=== PATIENT | female | born 1985 | race Caucasian/White ===

== ENCOUNTER 2016-06-20 18:56 | Outpatient (CLI) | payer OTHER, MEDICAID ==
[2016-06-20 19:50] LABS: APPEARANCE,URINE CLOUDY; BILIRUBIN,URINE NEGATIVE (NEGATIVE); GLUCOSE, URINE NEGATIVE (NEGATIVE); KETONES,URINE TRACE mg/dL (NEGATIVE); LEUKOCYTE ESTERASE,URINE TRACE (NEGATIVE); NITRITE,URINE NEGATIVE (NEGATIVE); PROTEIN,URINE 30 mg/dL (NEGATIVE); URINE SPECIFIC GRAVITY 1.026; UROBILINOGEN,URINE NEGATIVE mg/dL (<2.0)
--- NOTE | 2016-06-20 20:00 | L&D Flow Sheet ---
LD Flowsheet Datetime Report Generated by CPN: 06/20/2016 20:00 Datetime: 06/20/2016 19:57 Vital Signs NBP Sys/Carissa/Mean (mmHg): 113 (QS system process) : 74 (QS system process) : 90 (QS system process) Pulse: 96 (QS system process) Datetime: 06/20/2016 19:37 Uterine Activity Frequency (min): q2-3 minutes ([facility]) Pain Pain Scale: 3 (Katie Field ) Pain Presence: Intermittent (Katie Field ) Pain Type: Cramping; Contraction (Katie Mai RN) Pain Location: Abdomen (Katie NISHA Mai) Pain Goal: 0 (Katie Field ) Pain Relief Measures: Comfort Measures (Katie Field ) Pain Coping: Talking Through Contractions; Breathing Through Contractions ([facility], ) Vaginal Exam Vaginal Bleeding: Normal Show (Katie Field, RN) Maternal Assessment Level of Consciousness: Fully Conscious (Katie Field, RN) DTR's/Clonus: DTRs 2+; No Clonus (Katie [facility], RN) Headache: Denies (Katie [facility], RN) Breath Sounds, Left: Clear and Equal ([facility], RN) Breath Sounds, Right: Clear and Equal (Katie Field, RN) Nausea/Vomiting: Denies ([facility], RN) RUQ Epigastric Pain: Denies (Katie [facility], RN) Teaching Instructional Method: Verbal; Patient Instructed; Family/Support Person Instructed; Verbalized Understanding (Katie Mai RN) Plan of Care: Plan of Care Discussed (Katie Mai RN) Unit Routine: [place] to Room; Call Yan; Bed; Visiting Policy; Waiting Areas; Infant Security; Phone/Cell Phone Use; Unit Personnel; Handwashing; Flu/Illness Precautions; Monitoring; Safety/Fall Risk Prevention; Bathroom Privileges (Katie Mai RN) Datetime: 06/20/2016 19:26 Vital Signs NBP Sys/Carissa/Mean (mmHg): 124 (QS system process) : 91 (QS system process) : 103 (QS system process) Pulse: 108 (QS system process)
--- NOTE | 2016-06-20 20:00 | L&D Flow Sheet ---
LD Flowsheet Datetime Report Generated by CPN: 06/20/2016 20:00 Datetime: 06/20/2016 19:57 Vital Signs NBP Sys/Carissa/Mean (mmHg): 113 (QS system process) : 74 (QS system process) : 90 (QS system process) Pulse: 96 (QS system process) Datetime: 06/20/2016 19:37 Uterine Activity Frequency (min): q2-3 minutes ([facility]) Pain Pain Scale: 3 (Katie Field ) Pain Presence: Intermittent (Katie Field ) Pain Type: Cramping; Contraction (Katie Mai RN) Pain Location: Abdomen (Katie NISHA Mai) Pain Goal: 0 (Katie Field ) Pain Relief Measures: Comfort Measures (Katie Field ) Pain Coping: Talking Through Contractions; Breathing Through Contractions ([facility], ) Vaginal Exam Vaginal Bleeding: Normal Show (Katie Field, RN) Maternal Assessment Level of Consciousness: Fully Conscious (Katie Field, RN) DTR's/Clonus: DTRs 2+; No Clonus (Katie [facility], RN) Headache: Denies (Katie [facility], RN) Breath Sounds, Left: Clear and Equal ([facility], RN) Breath Sounds, Right: Clear and Equal (Katie Field, RN) Nausea/Vomiting: Denies ([facility], RN) RUQ Epigastric Pain: Denies (Katie [facility], RN) Teaching Instructional Method: Verbal; Patient Instructed; Family/Support Person Instructed; Verbalized Understanding (Katie Mai RN) Plan of Care: Plan of Care Discussed (Katie Mai RN) Unit Routine: [place] to Room; Call Yan; Bed; Visiting Policy; Waiting Areas; Infant Security; Phone/Cell Phone Use; Unit Personnel; Handwashing; Flu/Illness Precautions; Monitoring; Safety/Fall Risk Prevention; Bathroom Privileges (Katie Mai RN) Datetime: 06/20/2016 19:26 Vital Signs NBP Sys/Carissa/Mean (mmHg): 124 (QS system process) : 91 (QS system process) : 103 (QS system process) Pulse: 108 (QS system process)
[2016-06-20 20:08] LABS: URINE BARBITURATES SCREEN NEGATIVE; URINE METHADONE SCREEN NEGATIVE; URINE OPIATES LOW NEGATIVE; URINE PHENCYCLIDINE SCREEN NEGATIVE
--- NOTE | 2016-06-25 11:39 | Non Stress Test Report ---
Non Stress Test Datetime Report Generated by CPN: 06/25/2016 11:39 DEMOGRAPHIC EGA NST: 38.5 INDICATION Indication for Study: Ordered by Provider Indication for Study (NST) Other: LC MONITORING Monitor Explained: Monitor Explained; Test Explained; Patient Verbalized Understanding Time on Monitor: 06/20/2016 19:23 Time off Monitor: 06/20/2016 20:43 NST Duration: 80 NST INTERVENTIONS NST Interventions: PO Hydration; Reposition Patient Physician Notified NST: Dr. Mendez BABY A: [id number] BABY A Movement : Present Contraction Frequency : 5-9.5 FHR Baseline : 145 Accelerations : 15X15 Decelerations : None Variability : Moderate 6-25bpm NST Review: Meets Criteria for Reactive NST NST Review and Verified By : Marques Gonzalez RN NST Results: Reactive NST REPORT Report Trigger: Send Report
== END 2016-06-20 20:49 | disposition home or self-care (01) ==
LOC: LC 18:56
PROVIDERS: ATTEND Obstetrics & Gynecology
PROC: 4A1HXCZ Monitoring of Products of Conception, Cardiac Rate, External Approach (ICD-10-PCS; principal; 2016-06-20)
DX: O47.1 False labor at or after 37 completed weeks of gestation (principal); Z3A.38 38 weeks gestation of pregnancy
CPT/HCPCS: 59025; 80307; 81005

== ENCOUNTER 2016-06-25 11:42 | Inpatient (IN) | payer OTHER, MEDICAID ==
[2016-06-25 12:29] LABS: APPEARANCE,URINE TURBID; BILIRUBIN,URINE NEGATIVE (NEGATIVE); GLUCOSE, URINE NEGATIVE (NEGATIVE); KETONES,URINE TRACE mg/dL (NEGATIVE); LEUKOCYTE ESTERASE,URINE MODERATE (NEGATIVE); NITRITE,URINE NEGATIVE (NEGATIVE); PROTEIN,URINE 30 mg/dL (NEGATIVE); URINE SPECIFIC GRAVITY 1.013; UROBILINOGEN,URINE NEGATIVE mg/dL (<2.0)
[2016-06-25 13:10] LABS: URINE BARBITURATES SCREEN NEGATIVE; URINE METHADONE SCREEN NEGATIVE; URINE OPIATES LOW NEGATIVE; URINE PHENCYCLIDINE SCREEN NEGATIVE
[2016-06-25] MEDS ORDERED: RINGERS SOLUTION,LACTATED 1,000 ML IV ONE (13:42)
[2016-06-25] MEDS ORDERED: FENTANYL/BUPIVACAINE/NS/PF 200 MCG/100 ML RTUINJ EPI ONE (13:54)
[2016-06-25] MEDS ORDERED: EPHEDRINE SULFATE INJ 50 MG/1 ML AMPULE ONE (13:54)
[2016-06-25] MEDS ORDERED: BUPIVACAINE HCL 0.25 % INJ/PF (2.5 MG/1 ML) 30 ML VIAL ONE (13:55)
--- NOTE | 2016-06-25 14:42 | L&D Progress Notes ---
PROGRESS NOTES Datetime Report Generated by CPN: 06/25/2016 14:41 PROGRESS NOTE Impression: Normal Progression of Labor; Reassuring Heart Rate Procedures: Artificial ROM; Sterile Vag Exam Plan: Continue Present Management Vital Signs : Reviewed; Within Normal Limits Comment: Epidural in place. SVE with AROM-clear. SVE as above. VAGINAL EXAM Dilatation: 7 Dilatation: 4 Effacement: 90 Effacement: 80 Station: -1 Station: -1 MEMBRANES Membranes: Ruptured Membranes: Intact Amniotic Fluid Color: Clear FETUS A FHR - Baseline: 140 Monitoring: External US Decelerations: None : 39.3 Presentation: Vertex SIGNATURE SIGNATURE: [id number] SIGNATURE: [id number] Assignment: Carolyn Trejo MD Signature: with User ID: [email or web address] : with User ID: Michelle : I personally evaluated and examined the patient in conjunction with the MLP and agree with the assessment, treatment plan and disposition. : I personally evaluated and examined the patient in conjunction with the MLP and agree with the assessment, treatment plan and disposition.
[2016-06-25 14:45] LABS: ABSOLUTE EOSINOPHILS # (AUTO) 0.1 10^3/uL (0.0-0.6); ABSOLUTE MONOCYTES (AUTO) 0.5 10^3/uL (0.1-1.4); ABSOLUTE NEUT (AUTO) 5.6 10^3/uL (1.7-8.2); BASOPHILS % (AUTO) 0.2 % (0-2); EOSINOPHILS % (AUTO) 1.4 % (0-6); HEMATOCRIT 38.2 % (36.0-47.0); HEMOGLOBIN 12.9 g/dL (12.0-15.5); HGB HCT DIFFERENCE 0.5; LYMPHOCYTES % (AUTO) 24.6 % (13-45); MEAN CORPUSCULAR HEMOGLOBIN 30.1 pg (27.0-33.4); MEAN CORPUSCULAR HGB CONC 33.8 g/dL (32.0-36.0); MEAN CORPUSCULAR VOLUME 89 fl (80-97); MONOCYTES % (AUTO) 5.8 % (3-13); RED BLOOD COUNT 4.29 10^6/uL (3.72-5.28); RED CELL DISTRIBUTION WIDTH 13.7 % (11.5-14.0); WHITE BLOOD COUNT 8.2 10^3/uL (4.0-10.5)
[2016-06-25] MEDS ORDERED: CITRIC ACID/SODIUM CITRATE ORAL SOLN 15 ML UDCUP ONE (14:55)
[2016-06-25] MEDS ORDERED: OXYTOCIN/NORMAL SALINE 20 UNIT/1,000 ML RTUINJ ONE (15:27)
[2016-06-25] MEDS ORDERED: DIPHENHYDRAMINE HCL 25 MG CAPSULE PO PRN (16:11)
[2016-06-25] MEDS ORDERED: PROMETHAZINE HCL 25 MG TABLET PO PRN (16:11)
[2016-06-25] MEDS ORDERED: DIBUCAINE 1% OINTMENT 28 GM TP PRN (16:11)
[2016-06-25] MEDS ORDERED: MEASLES,MUMPS&RUBELLA VACC/PF 0.5 ML VIAL SUBCUT PRN (16:11)
[2016-06-25] MEDS ORDERED: ACETAMINOPHEN WITH CODEINE #3 TABLET PO PRN (16:11)
[2016-06-25] MEDS ORDERED: MAGNESIUM HYDROXIDE SUSP 30 ML UDCUP PO PRN (16:11)
[2016-06-25] MEDS ORDERED: ACETAMINOPHEN 650 MG SUPP.RECT PR PRN (16:11)
[2016-06-25] MEDS ORDERED: GLYCERIN/WITCH HAZEL LEAF 1 EACH MED..PAD TP PRN (16:11)
[2016-06-25] MEDS ORDERED: ZOLPIDEM TARTRATE 5 MG TABLET PO PRN (16:11)
[2016-06-25] MEDS ORDERED: DIPH/PERTUSS(ACELL)/TETANUS VAC/PF 0.5 ML SYR (>=10YO) IM PRN (16:11)
[2016-06-25] MEDS ORDERED: OXYTOCIN/NORMAL SALINE 1,000 ML IV PRN (16:11)
[2016-06-25] MEDS ORDERED: PROMETHAZINE HCL INJ 25 MG/1 ML VIAL IV PRN (16:11)
[2016-06-25] MEDS ORDERED: NA PHOS,M-B/NA PHOS,DI-BA (ADULT) 133 ML ENEMA PR PRN (16:11)
[2016-06-25] MEDS ORDERED: PSEUDOEPHEDRINE HCL 30 MG TABLET PO PRN (16:11)
[2016-06-25] MEDS ORDERED: PROMETHAZINE HCL 25 MG SUPP.RECT PR PRN (16:11)
[2016-06-25] MEDS ORDERED: BENZOCAINE/MENTHOL AEROSOL SPRAY 56 ML TOP PRN (16:11)
--- NOTE | 2016-06-25 17:37 | Admission Physical ---
Datetime Report Generated by CPN: 06/25/2016 17:37 CURRENT ADMISSION Chief Complaint: Uterine Contractions Indication for Induction: Not Applicable Admit Impression- Other: Cervical change after ambulation Admit Plan: Admit to Unit; Initiate Labor Protocol ALLERGIES Medication Allergies: No Medication Allergies: No Known Allergies (04/07/2015) Latex: No Latex Allergies Food Allergies: N/A Environmental Allergies: N/A OBSTETRICAL HISTORY EDC: 06/29/2016 00:00 : 7 Para: 1 Term: 1 : 0 SAB: 5 IAB: 0 Ectopic: 2 Livin Cesareans: 0 VBACs: 0 Multiple Births: 0 Gestational Diabetes: No Rh Sensitization: No Incompetent Cervix: No ANNELISE: No Infertility: No ART Treatment: No Uterine Anomaly: No IUGR: No Hx Previous C/S: No Macrosomia: No Hx Loss/Stillborn: No PIH: No Hx : No Placenta Previa/Abruption: No Depression/PP Depression: Yes PTL/PROM: No Post Hemorrhage: No Current Procedures: Ultrasound Obstetrical History Comments: G1 - 2005 - ectopic G2 2007 - G3 - 2007 - ectopic G4 2007 - 2011 - , Boy 2015 G7 - Current SEE RECORDS Alcohol: No Marijuana : No Cocaine: No Other Illicit Drugs: No Cigarettes: Former Smoker. 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 Surgery: No Heart Disease: No Hosp/Surgery: Yes Autoimmune Disorder: No Anesthetic Complications: No Kidney Disease: No Abnormal Pap Smear: Yes Neuro/Epilepsy: No Psychiatric Disorders: Yes Other Medical Diseases: No Hepatitis/Liver Disease: No Significant Family History: No Varicosities/Phlebitis: No Trauma/Violence : No Thyroid Dysfunction: No Medical History Comments: DEPRESSION _ ANXIETY Asthma, CHILDBIRTH abnormal pap at 15 INFECTIOUS HISTORY Gonorrhea: No Genital Herpes: No Chlamydia: No Tuberculosis: No Syphilis: No Hepatitis: No HIV/AIDS Exposure: No Rash or Viral Illness: No HPV: No PHYSICAL EXAM General: Normal HEENT: Normal Neurologic: Normal Thyroid: Deferred Heart: Normal Lungs: Normal Breast: Deferred Back: Normal Abdomen: Normal Genitourinary Exam: Normal Extremities: Normal Physical Exam Comments: Gravid Vital Signs: Reviewed; Within Normal Limits VAGINAL EXAM Dilatation: 7 Dilatation: 4 Effacement: 90 Effacement: 80 Station: -1 Station: -1 MEMBRANES Membranes: Ruptured Membranes: Intact Amniotic Fluid Color: Clear FETUS A EGA: 39.3 Monitoring: External US FHR- Baseline: 140 Accelerations: 15X15 Decelerations: None Presentation: Vertex Admit Comment: 2 ectopics-right ovary removed History of asthma History depression and anxiety Sent from office-tracing reactive, ambulated with cervical change noted when rechecked Admit rrecords available PLANS FOR LABOR AND DELIVERY Labor and Delivery: None Feeding Preference: Breast Benefit of Breast Feed Discussed: Yes Circumcision: Yes INFORMED CONSENT Assignment: Carolyn Trejo MD Signature: with User ID: Michelle : with User ID: Michelle : I personally evaluated and examined the patient in conjunction with the MLP and agree with the assessment, treatment plan and disposition. : I personally evaluated and examined the patient in conjunction with the MLP and agree with the assessment, treatment plan and disposition. : I personally evaluated and examined the patient in conjunction with the MLP and agree with the assessment, treatment plan and disposition.
--- NOTE | 2016-06-25 19:00 | L&D Flow Sheet ---
LD Flowsheet Datetime Report Generated by CPN: 06/25/2016 19:00 Datetime: 06/25/2016 15:27 Stage 2 Comments: delivery of placenta Pitocin hung at bolus (Makeda Bellavance, RNC) Datetime: 06/25/2016 15:09 NBP Sys/Carissa/Mean (mmHg): 175 (QS system process) : 88 (QS system process) : 115 (QS system process) Pulse: 110 (QS system process) Datetime: 06/25/2016 14:54 Monitor Mode: External (Makeda Bellavance, RNC) Frequency (min): 2-5 (Makeda Bellavance, RNC) Quality: Moderate (Makeda Bellavance, RNC) Duration (sec): 60-90 (Makeda Bellavance, RNC) Duration Criteria: Less than Two 120 Second Contractions (Makeda Bellavance, RNC) Pattern: Normal: <= 5 Contractions in 10 Minutes (Makeda Bellavance, RNC) Resting Tone (Palpate): Relaxed (Makeda Bellavance, RNC) Monitor Mode: External US (Makeda Bellavance, RNC) Monitor Interventions for FHR: Ultrasound Adjusted (Makeda Bellavance, RNC) FHR Baseline Rate : 145 (Makeda Bellavance, RNC) Variability: Moderate 6-25 bpm (Makeda Bellavance, RNC) Accelerations: None (Makeda Bellavance, RNC) Membranes Rupture Method: Artificial (Makeda Bellavance, RNC) Amniotic Fluid Color: Clear (Makeda Bellavance, RNC) Amniotic Fluid Amount: Moderate (Makeda Bellavance, RNC) Amniotic Fluid Odor: Normal (Makeda Bellavance, RNC) Antiemetics/Antacids: Bicitra 15 ml PO (Makeda Bellavance, RNC) IV/Blood Work: IV Infusing per Order (Makeda Bellavance, RNC) Datetime: 06/25/2016 14:37 Monitor Mode: External (Makeda Bellavance, RNC) Frequency (min): 2-5 (Makeda Bellavance, RNC) Quality: Moderate (Makeda Bellavance, RNC) Duration (sec): 60-90 (Makeda Bellavance, RNC) Duration Criteria: Less than Two 120 Second Contractions (Makeda Bellavance, RNC) Pattern: Normal: <= 5 Contractions in 10 Minutes (Makeda Bellavance, RNC) Resting Tone (Palpate): Relaxed (Makeda Bellavance, RNC) Monitor Mode: External US (Makeda Bellavance, RNC) Monitor Interventions for FHR: Ultrasound Adjusted (Makeda Bellavance, RNC) FHR Baseline Rate : 145 (Makeda Bellavance, RNC) Variability: Moderate 6-25 bpm (Makeda Bellavance, RNC) Accelerations: None (Makeda Bellavance, RNC) Dilatation (cm): 7.0 (Makeda Bellavance, RNC) Effacement (%): 90 (Makeda Bellavance, RNC) Station: -1 (Makeda Bellavance, RNC) Exam by: Josh Mane CNM (Makeda Bellavance, RNC) Membrane Status: Ruptured (Makeda Bellavance, RNC) Membranes Rupture Method: Artificial (Makeda Bellavance, RNC) Amniotic Fluid Color: Clear (Makeda Bellavance, RNC) Amniotic Fluid Amount: Moderate (Makeda Bellavance, RNC) Amniotic Fluid Odor: Normal (Makeda Bellavance, RNC) IV/Blood Work: IV Infusing per Order (Makeda Bellavance, RNC) Datetime: 06/25/2016 14:26 NBP Sys/Carissa/Mean (mmHg): 118 (QS system process) : 65 (QS system process) : 85 (QS system process) Pulse: 77 (QS system process) Datetime: 06/25/2016 14:25 NBP Sys/Carissa/Mean (mmHg): 124 (QS system process) : 64 (QS system process) : 87 (QS system process) Pulse: 100 (QS system process) Datetime: 06/25/2016 14:20 Respirations: 18 (Makeda Bellavance, RNC) Monitor Mode: External (Makeda Bellavance, RNC) Frequency (min): 2-8 (Makeda Bellavance, RNC) Quality: Moderate (Makeda Bellavance, RNC) Duration (sec): 60-90 (Makeda Bellavance, RNC) Duration Criteria: Less than Two 120 Second Contractions (Makeda Bellavance, RNC) Pattern: Normal: <= 5 Contractions in 10 Minutes (Makeda Bellavance, RNC) Resting Tone (Palpate): Relaxed (Makeda Bellavance, RNC) Monitor Mode: External US (Makeda Bellavance, RNC) Monitor Interventions for FHR: Ultrasound Adjusted (Makeda Bellavance, RNC) FHR Baseline Rate : 150 (Makeda Bellavance, RNC) Variability: Moderate 6-25 bpm (Makeda Bellavance, RNC) Accelerations: None (Makeda Bellavance, RNC) Decelerations: Early (Makeda Bellavance, RNC) Pain Assessment Comments: epidural finished and patient lying (Makeda Bellavance, RNC) IV/Blood Work: IV Infusing per Order (Makeda Bellavance, RNC) Datetime: 06/25/2016 14:19 NBP Sys/Carissa/Mean (mmHg): 134 (QS system process) : 78 (QS system process) : 99 (QS system process) Pulse: 82 (QS system process) Datetime: 06/25/2016 14:15 NBP Sys/Carissa/Mean (mmHg): 146 (QS system process) : 86 (QS system process) : 100 (QS system process) Pulse: 100 (QS system process) Datetime: 06/25/2016 14:14 NBP Sys/Carissa/Mean (mmHg): 133 (QS system process) : 62 (QS system process) : 89 (QS system process) Pulse: 100 (QS system process) Datetime: 06/25/2016 14:12 NBP Sys/Carissa/Mean (mmHg): 149 (QS system process) : 68 (QS system process) : 98 (QS system process) Pulse: 91 (QS system process) Epidural Procedure: Cath Placed (Makeda Bellavance, RNC) Epidural Procedure: Test Dose (Makeda Bellavance, RNC) Datetime: 06/25/2016 14:11 NBP Sys/Carissa/Mean (mmHg): 153 (QS system process) : 69 (QS system process) : 99 (QS system process) Pulse: 98 (QS system process) Anesthesia Comments: 2nd kit (Makeda Farrahavance, RNC) Datetime: 06/25/2016 14:10 NBP Sys/Carissa/Mean (mmHg): 129 (QS system process) : 79 (QS system process) : 97 (QS system process) Pulse: 90 (QS system process) Datetime: 06/25/2016 14:09 NBP Sys/Carissa/Mean (mmHg): 149 (QS system process) : 74 (QS system process) : 104 (QS system process) Pulse: 93 (QS system process) Epidural Procedure: Cath Placed; Test Dose (Makeda Bellavance, RNC) Datetime: 06/25/2016 14:08 NBP Sys/Carissa/Mean (mmHg): 137 (QS system process) : 65 (QS system process) : 91 (QS system process) Pulse: 102 (QS system process) Datetime: 06/25/2016 14:07 NBP Sys/Carissa/Mean (mmHg): 144 (QS system process) : 65 (QS system process) : 93 (QS system process) Pulse: 93 (QS system process) Datetime: 06/25/2016 14:06 NBP Sys/Carissa/Mean (mmHg): 138 (QS system process) : 86 (QS system process) : 105 (QS system process) Pulse: 106 (QS system process) IV/Blood Work: IV Started (Makeda Bellavance, RNC) Datetime: 06/25/2016 14:05 NBP Sys/Carissa/Mean (mmHg): 131 (QS system process) : 80 (QS system process) : 99 (QS system process) Pulse: 92 (QS system process) Procedure Verify: Correct Patient Identity; Correct Side and Site are Marked; Accurate Procedure Consent Form; Agreement on Procedure to be Done; Correct Patient Position (Makeda Bellavance, RNC) Anesthesia Plans: Epidural (Makeda Bellavance, RNC) Epidural Positioning: Sitting (Makeda Bellavance, RNC) Datetime: 06/25/2016 14:04 NBP Sys/Carissa/Mean (mmHg): 138 (QS system process) : 98 (QS system process) : 115 (QS system process) Pulse: 96 (QS system process) Datetime: 06/25/2016 13:58 Monitor Mode: External; Palpation (Makeda Bellavance, RNC) Frequency (min): 4-6 (Makeda Bellavance, RNC) Quality: Moderate to Strong (Makeda Bellavance, RNC) Duration (sec): 50-80 (Makeda Bellavance, RNC) Pattern: Normal: <= 5 Contractions in 10 Minutes (Makeda Bellavance, RNC) Resting Tone (Palpate): Relaxed (Makeda Bellavance, RNC) Monitor Mode: External US; Auscultation (Makeda Bellavance, RNC) FHR Baseline Rate : 140 (Makeda Bellavance, RNC) FHR Baseline Changes: No Baseline Change (Makeda Bellavance, RNC) Variability: Moderate 6-25 bpm (Makeda Bellavance, RNC) Accelerations: 15X15 (Makeda Bellavance, RNC) Decelerations: None (Makeda Bellavance, RNC) Pain Scale: 5 (ANNE-MARIE Soria) Pain Assessment Comments: pt loudly moaning and crying unable to maintain control. RN and family remain at bedside attempting to comfort and assist (ANNE-MARIE Soria) Comfort Measures: Family Support (Makeda Bellavance, RNC) Consults: Anesthesia (Ena Gongora, RNC) Patient Care Comments: Call placed to Dr Ramirez notified of pt inability to maintain control secondary to 5 out of 5 pain level, epidural requested (Ena Rolan, RNC) Datetime: 06/25/2016 13:30 Monitor Mode: External; Palpation (Makeda Bellavance, RNC) Frequency (min): 2-4 (Makeda Bellavance, RNC) Quality: Moderate to Strong (Makeda Bellavance, RNC) Duration (sec): 50-80 (Makeda Bellavance, RNC) Pattern: Normal: <= 5 Contractions in 10 Minutes (Makeda Bellavance, RNC) Resting Tone (Palpate): Relaxed (Makeda Bellavance, RNC) Monitor Mode: External US; Auscultation (Makeda Bellavance, RNC) FHR Baseline Rate : 140 (Makeda Bellavance, RNC) FHR Baseline Changes: No Baseline Change (Makeda Bellavance, RNC) Variability: Moderate 6-25 bpm (Makeda Bellavance, RNC) Accelerations: 15X15 (Makeda Bellavance, RNC) Decelerations: None (Makeda Bellavance, RNC) Comfort Measures: Family Support (Makeda Bellavance, RNC) Datetime: 06/25/2016 13:00 Monitor Mode: External; Palpation (Ena Camp, RNC) Frequency (min): 2-4 (Ena Camp, RNC) Quality: Moderate to Strong (Ena Camp, RNC) Duration (sec): 50-80 (Ena Camp, RNC) Pattern: Normal: <= 5 Contractions in 10 Minutes (Ena Camp, RNC) Resting Tone (Palpate): Relaxed (Ena Camp, RNC) Monitor Mode: External US; Auscultation (Ena Camp, RNC) FHR Baseline Rate : 140 (Ena Camp, RNC) FHR Baseline Changes: No Baseline Change (Ena Camp, RNC) Variability: Moderate 6-25 bpm (Ena Camp, RNC) Accelerations: 15X15 (Ena Camp, RNC) Decelerations: None (Ena Camp, RNC) Patient Position/Activity: Walking (Makeda Bellavance, RNC) Comfort Measures: Family Support (Ena Camp, RNC) Datetime: 06/25/2016 12:59 Monitor Mode: External (Makeda Bellavance, RNC) Frequency (min): 6-12 (Makeda Bellavance, RNC) Quality: Mild/Moderate (Makeda Bellavance, RNC) Duration (sec): 90-150 (Makeda Bellavance, RNC) Resting Tone (Palpate): Relaxed (Makeda Bellavance, RNC) Monitor Mode: External US (Makeda Bellavance, RNC) FHR Baseline Rate : 140 (Makeda Bellavance, RNC) Variability: Moderate 6-25 bpm (Makeda Bellavance, RNC) Accelerations: 15X15 (Makeda Bellavance, RNC) Decelerations: None (Makeda Bellavance, RNC) Pain Presence: Intermittent (Makeda Bellavance, RNC) Pain Type: Cramping (Makeda Bellavance, RNC) Patient Position/Activity: Left Tilt; Semi-Fowlers (Makeda Bellavance, RNC) Datetime: 06/25/2016 12:50 IV/Blood Work: IV Started; IV Bolus Started; IV Infusing per Order (Ena Camp, RNC) Patient Care Comments: 18g jelco placed on first attempt in right wrist. LR 1000 ml bolusing via gravity (Ena Camp, RNC) Datetime: 06/25/2016 12:04 Monitor Mode: External (Jemima Roberts RN) Monitor Interventions for UA: [place] Adjusted (Jemima Roberts RN) Frequency (min): occassional (Jemima Roberts, NISHA) Quality: Mild/Moderate (Jemima Roberts, NISHA) Duration (sec): 50-90 (Jemima Roberts, NISHA) Resting Tone (Palpate): Relaxed (Jemima Roberts RN) Pain Scale: 3 (Jemima Roberts RN) Pain Presence: Intermittent (Jemima Roberts, NISHA) Pain Type: Cramping (Jemima Roberts, NISHA) Pain Location: Abdomen (Jemima Roberts, NISHA) Pain Goal: 2 (Jemima Roberts RN) Pain Relief Measures: Comfort Measures (Jemima Roberts, NISHA) Pain Coping: Breathing Through Contractions (Jemima Roberts RN) Dilatation (cm): 4.0 (Jemima Roberts RN) Effacement (%): 50 (Jemima Roberts, NISHA) Station: -3 (Jemima Roberts, NISHA) Exam by: Karl Sal RNC (Jemima Roberts, RN) Vaginal Bleeding: None (Jemima Roberts, NISHA) Cervix, Consistency: Moderate (Jemima Roberts, NISHA) Cervix, Position: Posterior (Jemima Roberts, NISHA) Patient Position/Activity: Semi-Fowlers (Jemima Roberts, NISHA) Comfort Measures: Breathing/Relaxation (Jemima Roberts, NISHA) Datetime: 06/25/2016 11:59 Level of Consciousness: Fully Conscious (Makeda Bellavance, RNC) DTR's/Clonus: DTRs 2+; No Clonus (Makeda Bellavance, RNC) Headache: Denies (Makeda Bellavance, RNC) Breath Sounds, Left: Clear and Equal (Makeda Bellavance, RNC) Breath Sounds, Right: Clear and Equal (Makeda Bellavance, RNC) Nausea/Vomiting: Denies (Makeda Bellavance, RNC) RUQ Epigastric Pain: Denies (Makeda Bellavance, RNC) Datetime: 06/25/2016 11:57 NBP Sys/Carissa/Mean (mmHg): 133 (QS system process) : 85 (QS system process) : 103 (QS system process) Pulse: 97 (QS system process) Datetime: 06/25/2016 11:56 Monitor Mode: External (Makeda Bellavance, RNC) Frequency (min): 3-5 (Makeda Shantince, RNC) Quality: Mild (Makeda Shantince, RNC) Duration (sec): 40-50 (Makeda Shantince, RNC) Resting Tone (Palpate): Relaxed (Makeda Shantince, RNC) Monitor Mode: External US (Makeda Daviese, RNC) FHR Baseline Rate : 145 (Makeda Shantince, RNC) Variability: Moderate 6-25 bpm (Makeda Shantince, RNC) Accelerations: 15X15 (Makeda Shantince, RNC) Decelerations: None (Makeda Shantince, RNC) Pain Scale: 3 (Makedamanuel Daviese, RNC) Pain Presence: Intermittent (Makeda Daviese, RNC) Pain Type: Cramping (Makeda Daviese, RNC) Pain Location: Abdomen (Makeda Daviese, RNC) Pain Goal: 2 (Makeda Shantince, RNC) Pain Relief Measures: Comfort Measures (Makeda Daviese, RNC) Patient Position/Activity: Semi-Fowlers (Makeda Daviese, RNC) Comfort Measures: Breathing/Relaxation (Makeda Daviese, RNC)
[2016-06-25] MEDS: ACETAMINOPHEN WITH CODEINE #3 TABLET PO PRN (19:45)
[2016-06-25] MEDS: FAMOTIDINE 20 MG TABLET PO SCH (21:29)
[2016-06-25] MEDS: IBUPROFEN 800 MG TABLET PO SCH (21:30)
[2016-06-26] MEDS: ACETAMINOPHEN WITH CODEINE #3 TABLET PO PRN ×3 (02:36→14:47)
[2016-06-26] MEDS: IBUPROFEN 800 MG TABLET PO SCH ×3 (05:19→21:06)
--- NOTE | 2016-06-26 06:00 | L&D General Admission ---
General Admit Datetime Report Generated by CPN: 06/26/2016 06:00 INFORMATION Patient Age: 29 (10/31/2015 13:25:QS system process) EDC: 06/29/2016 00:00 (06/20/2016 18:55:Inge Trejo RN) : 7 (06/20/2016 18:55:Katie Mai RN) Para: 1 (06/20/2016 18:55:Katie Mai RN) Term: 1 (06/20/2016 18:55:Jemima Roberts RN) : 0 (06/20/2016 18:55:Jemima Roberts RN) Spontaneous Abortions: 5 (06/20/2016 18:55:Jemima Roberts RN) Induced Abortions: 0 (06/20/2016 18:55:Jemima Roberts RN) Livin (06/20/2016 18:55:Jemima Roberts RN) Cesareans: 0 (06/20/2016 18:55:Jemima Roberts RN) VBACs: 0 (06/20/2016 18:55:Jemima Roberts RN) Ectopic: 2 (06/20/2016 18:55:Jemima Roberts RN) Multiple Births: 0 (06/20/2016 18:55:Jemima Roberts RN) Baby, Number in Womb: 1 (06/20/2016 18:55:Katie Mai RN) CARE Primary Operating Room Surgical Technician: [facility] (06/20/2016 18:55:Katie Mai RN) Month of 1st Visit: sept (06/20/2016 18:55:ANNE-MARIE Aguero) Adequate Care: Yes (06/20/2016 18:55:Katie Mai RN) Prepregnancy Weight (lb): 130 (06/20/2016 18:55:ANNE-MARIE Aguero) Prepregnancy Weight (kg): 59.1 (06/20/2016 18:55:QS system process) Height (in): 62 (06/25/2016 17:36:QS system process) ALLERGIES Medication Allergy: No (06/20/2016 18:55:Katie Mai RN) Medication Allergies: No Known Allergies (04/07/2015) (10/31/2015 13:25:QS system process) Latex Allergy: No Latex Allergies (06/20/2016 18:55:Katie Mai RN) Food Allergies: N/A (06/20/2016 18:55:Katie Mai RN) Environmental Allergies: N/A (06/20/2016 18:55:Katie Mai RN) COMMUNICATION Primary Language: Albanian (06/20/2016 18:55:Katie Mai RN) Medical Tx Preferred Language: Albanian (06/20/2016 18:55:Katie Mai RN) Communication Barrier(s): None (06/20/2016 18:55:Katie Mai RN) DEMOGRAPHICS Address: [address] [place] [id number] (06/20/2016 18:57:QS system process) Zipcode: [address] (06/20/2016 18:57:QS system process) Home (06/20/2016 18:57:QS system process) SSN: [id number] (10/31/2015 13:25:QS system process) Next of Kin Name: LESTER LONDON (06/20/2016 18:57:QS system process) Next of Kin (06/20/2016 18:57:QS system process) Next of Kin Relationship: OR (06/20/2016 18:57:QS system process) Date of : 1985 (10/31/2015 13:25:QS system process) Marital Status: (10/31/2015 13:25:QS system process) Sex: Female (10/31/2015 13:25:QS system process) Race: (10/31/2015 13:25:QS system process) Ethnicity: Non- or (10/31/2015 13:25:QS system process) Spiritism: Congregation (10/31/2015 13:25:QS system process) FOB Involved: Yes (06/20/2016 18:55:Katie Mai RN) Father of Baby Name: Lester London (06/20/2016 18:55:Katie Mai RN) DRUG AND ALCOHOL USE Alcohol: No (06/20/2016 18:55:Katie Mai RN) Cigarettes: Former Smoker. [id number] (06/20/2016 18:55:Katie Mai RN) Marijuana: No (06/20/2016 18:55:Katie Mai RN) Cocaine: No (06/20/2016 18:55:Katie Mai RN) Other Illicit Drugs: No (06/20/2016 18:55:Katie Mai RN) VACCINE HISTORY Influenza Vaccine: Yes (06/20/2016 18:55:Katie Mai RN) Pneumococcal Vaccine: No (06/20/2016 18:55:Katie Mai RN) Tetanus Vaccine: No (06/20/2016 18:55:Katie Mai RN) Tdap Vaccine: No (06/20/2016 18:55:Katie Mai RN) Hepatitis B Vaccine: No (06/20/2016 18:55:Katie Mai RN) Coal Dumping Equipment Operator: [facility] (06/20/2016 18:55:Katie Mai RN) Feeding Preference: Breast (06/20/2016 18:55:Katie Mai RN) Benefit of Breast Feed Discussed: Yes (06/20/2016 18:55:Katie Mai RN) Circumcision: Yes (06/20/2016 18:55:Katie Mai RN) Classes Attended: No (06/20/2016 18:55:Katie Mai RN) Tubal Ligation: No (06/20/2016 18:55:Katie Mai RN) Tubal Authorization Signed: N/A (06/20/2016 18:55:Katie Mai RN) Consent: N/A (06/20/2016 18:55:Katie Mai RN) Consent Signed: N/A (06/20/2016 18:55:Katie Mai RN) Plans for Labor and Delivery: None (06/20/2016 18:55:Katie Mai RN) Support Person: Lester London (06/20/2016 18:55:Katie Mai RN) Support Person Relationship: Significant Other (06/20/2016 18:55:Katie Mai RN) Cultural/Spritual Practice: No (06/20/2016 18:55:Katie Mai RN) Spir/Cult Dietary Needs: No (06/20/2016 18:55:Katie Mai RN) LIVING SITUATION/DISCHARGE PLAN Living Arrangements: House (06/20/2016 18:55:Katie Mai RN) Adequate Access to:: Electric; Heat; Refrigeration; Plumbing/Running water; Phone; Transportation (06/20/2016 18:55:Katie Mai RN) WIC Program: Yes (06/20/2016 18:55:Katie Mai RN) Discharge Underbaster Person: Lester London (06/20/2016 18:55:Katie Mai RN) Person to Help after Discharge: Lester London (06/20/2016 18:55:Katie Mai RN) Currently Using Commun Resources: No (06/20/2016 18:55:Katie Mai RN) Outside Agency/Regional Account Executive: No (06/20/2016 18:55:Katie Mai RN) Car Seat for Discharge: Yes (06/20/2016 18:55:Katie Mai RN) Adoption Requested: No (06/20/2016 18:55:Katie Mai RN) Pt Contact w/ Post : N/A (06/20/2016 18:55:Katie Mai RN) LABS Blood Type: O Positive (06/20/2016 18:55:Jemima Roberts RN) Antibody Screen: NEGATIVE (06/20/2016 18:55:Jemima Roberts RN) Hemoglobin: 12.9 (06/25/2016 14:30:QS system process) Hematocrit: 38.2 (06/25/2016 14:30:QS system process) MCV: 89 (06/25/2016 14:30:QS system process) Group Beta Strep: NEGATIVE (06/20/2016 18:55:Jemima Roberts RN) Gonorrhea: Negative (06/20/2016 18:55:Jemima Roberts RN) Chlamydia: Negative (06/20/2016 18:55:Jemima Roberts RN) RPR/VDRL: Nonreactive (06/20/2016 18:55:Jemima Roberts RN) Hepatitis B: Negative (06/20/2016 18:55:Jemima Roberts RN) Rubella: Immune (06/20/2016 18:55:Jemima Roberts RN) OB/PREVIOUS HISTORY Previous Procedures: Ultrasound (06/20/2016 18:55:Katie Mai RN) Current Procedures: Ultrasound (06/20/2016 18:55:Katie Mai RN) History of Previous : No (06/20/2016 18:55:Katie Mai RN) History of Gestational Diabetes: No (06/20/2016 18:55:Katie Mai RN) History of PIH: No (06/20/2016 18:55:Katie Mai RN) History of Incompetent Cervix: No (06/20/2016 18:55:Katie Mai RN) History of Placenta Previa/Abrup: No (06/20/2016 18:55:Katie Mai RN) History of Macrosomia: No (06/20/2016 18:55:Katie Mai RN) History of IUGR: No (06/20/2016 18:55:Katie Mai RN) History of Hemorrhage: No (06/20/2016 18:55:Katie Mai RN) History of Loss/Stillborn: No (06/20/2016 18:55:Katie Mai RN) History of : No (06/20/2016 18:55:Katie Mai RN) History of D (Rh) Sensitization: No (06/20/2016 18:55:Katie Mai RN) History Recurrent Loss/Stillborn: No (06/20/2016 18:55:Katie Mai RN) History Depression/PP Depression: Yes (06/20/2016 18:55:Jemima Roberts RN) History of Uterine Anomaly/ANNELISE: No (06/20/2016 18:55:Katie Mai RN) History of Infertility: No (06/20/2016 18:55:Katie Mai RN) History of ART Treatment: No (06/20/2016 18:55:Katie Mai RN) History of ANNELISE: No (06/20/2016 18:55:Katie Mai RN) Comments Obstetrical History: G1 - 2006 - ectopic G2 - 2007 - SAB G3 - 2008 - ectopic G4 - 2007 - SAB G5 - 2011 - , Boy G6 - 2015 - SAB G7 - Current (06/20/2016 18:55:Katie Mai RN) MEDICAL HISTORY Med Hx Diabetes: No (06/20/2016 18:55:Katie Mai RN) Med Hx Hypertension: No (06/20/2016 18:55:Katie Mai RN) Med Hx Heart Disease: No (06/20/2016 18:55:Katie Mai RN) Med Hx Autoimmune Disorder: No (06/20/2016 18:55:Katie Mai RN) Med Hx Kidney Disease/UTI: No (06/20/2016 18:55:Katie Mai RN) Med Hx Neurologic/Epilepsy: No (06/20/2016 18:55:Katie Mai RN) Med Hx Psychiatric Disorders: Yes (06/20/2016 18:55:Jemima Roberts RN) Med Hx Hepatitis/Liver Disease: No (06/20/2016 18:55:Katie Mai RN) Med Hx Varicosities/Phlebitis: No (06/20/2016 18:55:Katie Mai RN) Med Hx Thyroid Dysfunction: No (06/20/2016 18:55:Katie Mai RN) Med Hx Trauma/Violence: No (06/20/2016 18:55:Katie Mai RN) Med Hx Blood Transfusion: No (06/20/2016 18:55:Katie Mai RN) Med Hx Pulmonary (Asthma,TB): Yes (06/20/2016 18:55:Katie Mai RN) Med Hx Breast: No (06/20/2016 18:55:Katie Mai RN) Med Hx BLUEPRINT BLOCKER Surgery: No (06/20/2016 18:55:Katie Mai RN) Med Hx Hospitalization/Surgery: Yes (06/20/2016 18:55:Jemima Roberts RN) Med Hx Anesthetic Complications: No (06/20/2016 18:55:Katie Mai RN) Med Hx Abnormal Pap Smear: Yes (06/20/2016 18:55:Katie Mai RN) Other Medical Diseases: No (06/20/2016 18:55:Katie Mai RN) Med Hx Significant Family Hx: No (06/20/2016 18:55:Katie Mai RN) Details of Med/Surg Hx: DEPRESSION _ ANXIETY Asthma, CHILDBIRTH abnormal pap at 15 (06/20/2016 18:55:Jemima Roberts RN) INFECTIOUS HISTORY Inf Hx Gonorrhea: No (06/20/2016 18:55:Katie Mai RN) Inf Hx Chlamydia: No (06/20/2016 18:55:Katie Mai RN) Inf Hx Syphilis: No (06/20/2016 18:55:Katie Mai RN) Inf Hx HIV/AIDS: No (06/20/2016 18:55:Katie Mai RN) Inf Hx Human Papilloma Virus: No (06/20/2016 18:55:Katie Mai RN) Inf Hx Pt/Partner Genital Herpes: No (06/20/2016 18:55:Katie Mai RN) Inf Hx Tuberculosis/Exposure: No (06/20/2016 18:55:Katie Mai RN) Inf Hx Hepatitis B,C: No (06/20/2016 18:55:Katie Mai RN) Inf Hx Rash or Viral Illness: No (06/20/2016 18:55:Katie Mai RN) GENETIC HISTORY Gen Hx Age >=35 at YOH[place]: No (06/20/2016 18:55:Katie Mai RN) Gen Hx Thalassemia: No (06/20/2016 18:55:Katie Mai RN) Gen Hx Congenital Heart Defect: No (06/20/2016 18:55:Katie Mai RN) Gen Hx Neural Tube Defect: No (06/20/2016 18:55:Katie Mai RN) Gen Hx Down's Syndrome: No (06/20/2016 18:55:Katie Mai RN) Gen Hx Tim-Sachs: No (06/20/2016 18:55:Katie Mai RN) Gen Hx Jase: No (06/20/2016 18:55:Katie Mai RN) Gen Hx Familial Dysautonomia: No (06/20/2016 18:55:Katie Mai RN) Gen Hx Sickle Cell Disease/Trait: No (06/20/2016 18:55:Katie Mai RN) Gen Hx Hemophilia/Blood Disorder: No (06/20/2016 18:55:Katie Mai RN) Gen Hx Muscular Dystrophy: No (06/20/2016 18:55:Katie Mai RN) Gen Hx Cystic Fibrosis: No (06/20/2016 18:55:Katie Mai RN) Gen Hx Huntingtons Chorea: No (06/20/2016 18:55:Katie Mai RN) Gen Hx Mental Retardation/Autism: No (06/20/2016 18:55:Katie Mai RN) Gen Hx Tested for Fragile X: No (06/20/2016 18:55:Katie Mai RN) Gen Hx Other Inher/Chromosomal: No (06/20/2016 18:55:Katie Mai RN) Gen Hx Maternal Metabolic DO: No (06/20/2016 18:55:Katie Mai RN) Gen Hx Pt Father or FOB Defect: No (06/20/2016 18:55:Katie Mai RN) Gen Hx Other Genetic History: No (06/20/2016 18:55:Katie Mai RN) Gen Hx Drugs/Meds since LMP: Yes (06/20/2016 18:55:Katie Mai RN) Gen Hx Medications: PNV, Folic Acid, Zyrtec and Tums (06/20/2016 18:55:Katie Mai RN)
--- NOTE | 2016-06-26 06:15 | L&D Care Plan ---
LD CARE PLANS Datetime Report Generated by CPPasha: 06/26/2016 06:15 Datetime: 06/25/2016 13:45 State: Actual (ANNE-MARIE Soria) Related To: Labor and Delivery Process; Treatment and Procedures; Post (ANNE-MARIE Soria) Goal(s): Patients Pain will be Assessed and Managed; Patient will Verbalize Adequate Relief of Pain or the Ability to [place] with Current Pain (ANNE-MARIE Soria) Interventions: Assess Pain Severity on Scale of 0 (None) to 5 (Severe); Assess Type, Location and Intensity of Pain Each Time Client Reports Discomfort and Notify Provider if Unusal Pain Develops; Encourage Proper Breathing and Relaxation Techniques; Offer Alternatives Such as Repositioning, Calm Environment, Massages, Diversional Activities, Ice Pack, Splinting, and Ambulation; Administer Analgesics as Ordered; Assist with Epidural Placement as Appropriate; Evaluate Therapeutic Effectiveness of Medication and Treatments (ANNE-MARIE Soria) Outcome: Patient will Report Absence or Relief of Pain Consistent with Established Pain Goal (ANNE-MARIE Soria) Status: Ongoing (ANNE-MARIE Soria) Outcome: Patient will have a Decrease in Signs and Symptoms of Discomfort (Ena Gongora, RN) Status: Ongoing (Ena Gongora, RNC) Outcome: Pain will be Controlled During Procedures (Ena Gongora, RN) Status: Ongoing (Ena Gongora, RN) State: Actual (Ena Gongora, RN) Related To: Labor and Delivery Process; Fear of Unknown; Situational Crisis; Medical Interventions; Significant Life Event (Ena Gongora, RN) Goal(s): Patient will have Decreased Anxiety and be able to Function at Acceptable Levels (Ena Gongora, RN) Interventions: Assess Verbal and Nonverbal Behavioral Indicators of Anxiety; Assist Patient to Identify and Verbalize Symptoms of Anxiety; Identify and Demonstrate Techniques to Control Anxiety; Assist Patient with Coping Mechanisms to Manage Anxiety; Provide Theraputic Touch for the Patient; Explain to Patient, Using a Calm Reassuring Approach and Nonmedical Terms, All Activities, Procedures, and Concerns; Instruct Patient and Family about Post Discharge Care, Limitations, Symptoms to Report and Resources Available (Ena Gongora, RN) Outcome: Patient will Identify, Verbalize and Demonstrate Techniques to Control Anxiety (Ena Gongora, RN) Status: Ongoing (Ena Gongora, RN) Outcome: Patient's Posture, Facial Expressions, Gestures and Activity Level will Reflect Decreased Anxiety (Ena Gongora, RN) Status: Ongoing (Ena Gongora, RN) Outcome: Patient will Verbalize a Sense of Control and/or Acceptance of the Situation (Ena Gongora, RN) Status: Ongoing (Ena Gongora, RN) Outcome: Patient will Identify and Utilize Support Person (Ena Gongora, RN) Status: Ongoing (Ena Gongora, RN) State: Actual (Ena Gongora, RN) Related To: Labor and Delivery Process; Treatment and Procedures; Feeding and Infant Care; Community Resources and Available Support Mechanisms (Ena Gongora, RN) Goal(s): Patient will Accurately Verbalize Understanding of Plan of Care and Treatment; Patient and Family will Accurately Verbalize Understanding of the Disease Process (Ena Gongora, RNC) Interventions: Assess Motivation and Willingness of Patient/Family to Learn; Assess Preferred Learning Mode: One to One Instruction, Reading, Videos, Group Discussion or Demonstration; Assess Barriers to Learning: Pain, Emotional State, Language Barrier, Cognitive Impairment, Visual or Hearing Deficits; Assess Patient and Family Knowledge of Disease Process, Medications and Treatment; Discuss Therapy and/or Treatment Options, Describe Rationale Behind Management, Therapy and Treatment Recommendations; Instruct Patient and Family on Signs and Symptoms to Report; Instruct Patient and Family on Medication Effects and Side Effects; Provide Appropriate and Timely Education Using Multiple Techniques; Provide Patient and Family with Support Group Information and Resources; Give Clear and Thorough Explanations and Demonstrations (Ena Gongora, ANNE-MARIE) Outcome: Patient and Family will Verbalize Understanding of Condition, Treatment and Signs and Symptoms to Report (Ena Gongora, ANNE-MARIE) Status: Ongoing (Ena Gongora, ANNE-MARIE) Outcome: Patient will Identify Perceived Learning Needs and Express Motivation to Learn (Ena Gongora, RNNadira) Status: Ongoing (Ena Gongora, RNNadira) Outcome: Patient will Verbalize Understanding of Desired Content, and/or Performs Desired Skill Prior to Discharge (ANNE-MARIE Soria) Status: Ongoing (Ena Gongora, ANNE-MARIE) State: Risk For (ANNE-MARIE Soria) Related To: Labor and Delivery Process; Anesthesia (Ena Gongora, ANNE-MARIE) Goal(s): Patient will Remain Free from Injury (Ena Gongora, ANNE-MARIE) Interventions: Monitoring as per Hospital Protocol; Assess Neurological Status; Perform Risk Assessment of Patients with Induction and ; Perform Fall Risk Assessment and Prevention per Hospital Protocol; Perform DVT Risk Assessment and Prophylaxis per Hospital Protocol; Ensure that Oxygen, Suction, and Resuscitation Medications and Equipment are Readily Available; Confirm Patient ID Prior to Procedure(s) and Medication Administration per Hospital Policy (Ena Gongora, NISHA) Outcome: Successful Fall Risk Prevention (Ena Gongora, ANNE-MARIE) Status: Ongoing (Ena Gongora, RN) Outcome: Patient will Deliver without Adverse Sequela (Ena Gongora, ANNE-MARIE) Status: Ongoing (Ena Gongora, RNNadira) Outcome: Patient's Neurological Status will Remain Stable (Ena Gongora, RNC) Status: Ongoing (Ena Gongora, RNNadira) State: Risk For (Ena Gongora, ANNE-MARIE) Related To: Vaginal Delivery; Invasive Procedures (Ena Gongora, ANNE-MARIE) Goal(s): Patient will Maintain Optimal Skin Integrity, Free of Breakdown, Injury or Infection (Ena Gongora, RNC) Interventions: Complete Screening for Pressure Ulcer Risk and Initiate Protocol per Hospital Policy; Monitor Site of Skin Impairment for Color Changes, Redness, Swelling, Warmth, Pain or Other Signs of Infection; Encourage and Assist with Position Changes; Monitor Patient's Mobility Status; Provide Adequate Nutrition and Fluids; Teach Patient Appropriate Hygienic Care; Teach Patient/Family Skin Care Management (Ena Gongora, NISHAC) Outcome: Patient will not have Evidence of Injury Such as Skin Breakdown, Scrapes, Cuts, or Bruising (Ena Gongora, RNC) Status: Ongoing (Ena Gongora, RNC) Outcome: Patient will Report Any Altered Sensation or Pain at Site of Skin Impairment (Ena Gongora, RNC) Status: Ongoing (Ena Gongora, RNC) Outcome: Patients Incisions and Wounds will be without Signs or Symptoms of Infection (Ena Gongora, RNC) Status: Ongoing (Ena Gongora, RNC) Outcome: Patient will Demonstrate Understanding of Plan to Heal Skin and Prevent Reinjury and Verbalize Risk Factors (Ena Gongora, NISHAC) Status: Ongoing (Ena Gongora, ANNE-MARIE) State: Actual (Ena Gongora, ANNE-MARIE) Related To: ; (Ena Gongora, ANNE-MARIE) Goal(s): Patient will have an Intake of Nutrients Sufficient to Meet Metabolic Needs (Ena Gongora, ANNE-MARIE) Interventions: Nutritional Screening and Assessment per Hospital Policy; Consult Concrete Plant Laborer for Further Assessment and Recommendations Regarding Food Preferences and Nutritional Support; Allow Patient to Plan and Order Diet when Possible; Monitor Laboratory Values That Indicate Nutritional Well-being; Consult Securities Supervisor for Nutritional Support Regarding Requirements; Document Actual Weight Initially and Weekly (Do Not Estimate); Encourage Patient Participation in Maintaining a Food Log as Indicated; Educate Patient on the Importance of Maintaining an Adequate Caloric Intake (Ena Gongora, ANNE-MARIE) Outcome: Patient will Receive Adequate Calories and Fluid Volume to Meet Metabolic Needs (Ena Gongora, ANNE-MARIE) Status: Ongoing (Ena Gongora, ANNE-MARIE) Outcome: Patient will Select Foods or Meals that Support Adequate Nutrition (Ena Gongora, RNC) Status: Ongoing (Ena Gongora, RNC)
[2016-06-26 08:04] LABS: HEMOGLOBIN 12.3 g/dL (12.0-15.5); HGB HCT DIFFERENCE -0.1; MEAN CORPUSCULAR HEMOGLOBIN 29.8 pg (27.0-33.4); MEAN CORPUSCULAR HGB CONC 33.3 g/dL (32.0-36.0); MEAN CORPUSCULAR VOLUME 90 fl (80-97); RED BLOOD COUNT 4.14 10^6/uL (3.72-5.28); RED CELL DISTRIBUTION WIDTH 13.7 % (11.5-14.0); WHITE BLOOD COUNT 11.8 10^3/uL (4.0-10.5)
[2016-06-26] MEDS: FAMOTIDINE 20 MG TABLET PO SCH ×2 (09:07→21:05)
[2016-06-26] MEDS: FERROUS SULFATE 325 MG TABLET PO SCH ×2 (09:07→17:38)
[2016-06-26] MEDS: DOCUSATE SODIUM 100 MG CAPSULE PO SCH ×2 (09:07→17:38)
[2016-06-26] MEDS: PRENATAL VITAMIN W-O CA NO5/FE FUMARATE/FA CAPSULE PO SCH (09:07)
[2016-06-26] MEDS: SENNOSIDES/DOCUSATE 8.6-50 MG 1 EACH TABLET PO SCH (09:07)
--- NOTE | 2016-06-26 09:49 | PDOC PROGRESS REPORT ---
Subjective-OB Subjective: Post Delivery Day: 30 year old. Denies any needs at this time. Doing well, no complaints. She reports light bleeding and regular diet. Physical Exam (OB) Vital Signs: Temp Pulse Resp BP Pulse Ox 97.6 F 101 H 18 107/66 99 06/26/16 07:24 06/26/16 07:24 06/26/16 07:24 06/26/16 07:24 06/26/16 07:24 Intake & Output 06/25/16 06/26/16 06/27/16 06:59 06:59 06:59 Weight 84.85 kg - Lochia Lochia Amount: Small 10-25 ml Lochia Color: Rubra/Red - Abdomen Description: Soft, Round Hernia Present: No Fundal Description: Firm, Midline Fundal Height: u/u - u/2 Objective-Diagnostic Laboratory: 06/26/16 07:20 06/25/16 06/25/16 06/25/16 11:50 14:30 14:30 WBC 8.2 RBC 4.29 Hgb 12.9 Hct 38.2 MCV 89 MCH 30.1 MCHC 33.8 RDW 13.7 Plt Count 242 Seg Neutrophils % 68.0 Lymphocytes % 24.6 Monocytes % 5.8 Eosinophils % 1.4 Basophils % 0.2 Absolute Neutrophils 5.6 Absolute Lymphocytes 2.0 Absolute Monocytes 0.5 Absolute Eosinophils 0.1 Absolute Basophils 0.0 Urine Color YELLOW Urine Appearance TURBID Urine pH 6.0 Ur Specific [place] 1.013 Urine Protein 30 H Urine Glucose (UA) NEGATIVE Urine Ketones TRACE H Urine Blood LARGE H Urine Nitrite NEGATIVE Ur Leukocyte Esterase MODERATE H Blood Type O POSITIVE Antibody Screen NEGATIVE 06/26/16 07:20 WBC 11.8 H RBC 4.14 Hgb 12.3 Hct 37.0 MCV 90 MCH 29.8 MCHC 33.3 RDW 13.7 Plt Count 209 Seg Neutrophils % Lymphocytes % Monocytes % Eosinophils % Basophils % Absolute Neutrophils Absolute Lymphocytes Absolute Monocytes Absolute Eosinophils Absolute Basophils Urine Color Urine Appearance Urine pH Ur Specific [place] Urine Protein Urine Glucose (UA) Urine Ketones Urine Blood Urine Nitrite Ur Leukocyte Esterase Blood Type Antibody Screen Assessment and Plan(PN) - Assessment and Plan (1) (spontaneous vaginal delivery) Is this a current diagnosis for this admission?: Yes - Time Spent with Patient Time with patient: Less than 15 minutes Medications reviewed and adjusted accordingly: Yes - Disposition Anticipated Discharge: Home Within: within 24 hours
[2016-06-26] MEDS ORDERED: SIMETHICONE 80 MG TAB.CHEW PO PRN (18:01)
[2016-06-27] MEDS: IBUPROFEN 800 MG TABLET PO SCH ×2 (05:07→14:46)
[2016-06-27 07:17] LABS: ABSOLUTE EOSINOPHILS # (AUTO) 0.2 10^3/uL (0.0-0.6); ABSOLUTE LYMPHOCYTES (AUTO) 2.4 10^3/uL (0.5-4.7); ABSOLUTE MONOCYTES (AUTO) 0.6 10^3/uL (0.1-1.4); ABSOLUTE NEUT (AUTO) 7.3 10^3/uL (1.7-8.2); BASOPHILS % (AUTO) 0.4 % (0-2); EOSINOPHILS % (AUTO) 2.3 % (0-6); HEMATOCRIT 38.6 % (36.0-47.0); HGB HCT DIFFERENCE 0.4; LYMPHOCYTES % (AUTO) 22.7 % (13-45); MEAN CORPUSCULAR HEMOGLOBIN 29.9 pg (27.0-33.4); MEAN CORPUSCULAR HGB CONC 33.6 g/dL (32.0-36.0); MEAN CORPUSCULAR VOLUME 89 fl (80-97); MONOCYTES % (AUTO) 5.4 % (3-13); RED BLOOD COUNT 4.34 10^6/uL (3.72-5.28); SEGMENTED NEUTROPHILS % (AUTO) 69.2 % (42-78); WHITE BLOOD COUNT 10.6 10^3/uL (4.0-10.5)
[2016-06-27] MEDS: PRENATAL VITAMIN W-O CA NO5/FE FUMARATE/FA CAPSULE PO SCH (10:33)
[2016-06-27] MEDS: SENNOSIDES/DOCUSATE 8.6-50 MG 1 EACH TABLET PO SCH (10:34)
[2016-06-27] MEDS: FERROUS SULFATE 325 MG TABLET PO SCH ×2 (10:34→18:07)
[2016-06-27] MEDS: DOCUSATE SODIUM 100 MG CAPSULE PO SCH ×2 (10:34→18:08)
--- NOTE | 2016-06-27 11:04 | PDOC DISCHARGE SUMMARY ---
Final Diagnosis Discharge Date: 06/27/16 Discharge Data - Discharge Medication Home Medications: Calcium Carbonate [Tums] 1 tab.chew PO PRN PRN 06/20/16 Cetirizine HCl [Zyrtec 10 mg Tablet] 10 mg PO DAILY 06/20/16 Folic Acid/Mv,Fe,Other Min [One Daily For Women Tablet] 1 each PO DAILY Pnv No.122/Iron/Folic Acid [ Multi Tablet] 1 each PO DAILY 06/20/16 Ibuprofen [Motrin 800 mg Tablet] 800 mg PO Q8HP PRN #90 tablet 06/27/16 Reason(s) for Admission: Onset of Labor Procedures: Ultrasound Intrapartum Procedure(s): Spontaneous Vaginal Delivery - Diagnosis Test Laboratory: Temp Pulse Resp BP Pulse Ox 98.0 F 78 16 109/70 98 06/27/16 08:02 06/27/16 08:02 06/27/16 08:02 06/27/16 08:02 06/27/16 08:02 06/25/16 06/25/16 06/26/16 11:50 14:30 07:20 RBC 4.29 4.14 Hgb 12.9 12.3 Hct 38.2 37.0 Urine Opiates Screen NEGATIVE 06/27/16 07:03 RBC 4.34 Hgb 13.0 Hct 38.6 Urine Opiates Screen - Discharge information/Instructions Discharge Activity: Activity As Tolerated, Balance Activity w/Rest, No Lifting Over 10 Pounds, Pelvic Rest, Slowly Increase Activity, No tub bath Discharge Diet: Regular Disposition: HOME, SELF-CARE Follow [facility]: [facility] in: 4, Weeks
[2016-06-27 11:19] VITALS: BP 127/73
[2016-06-27] MEDS: FAMOTIDINE 20 MG TABLET PO SCH (11:55)
--- NOTE | 2016-07-01 12:41 | Delivery Summary ---
Del Sum A-C Datetime Report Generated by CPN: 07/01/2016 12:41 DELIVERY PERSONNEL DELIVERY PERSONNEL: [id number] Delivery Doctor:: Mary Kruger CNM Labor and Delivery Nurse:: ANNE-MARIE Aguero Student Observers:: Orly APONTE CNM; SN Bridgette DAWN/LOBO: [facility] MATERNAL INFORMATION Delivery Anesthesia: Epidural Medications After Delivery: Pitocin Bolus-Please Comment Estimated Blood Loss (ml): 250 Maternal Complications: None Provider Comments: of viable male in vertex OA to YEN at 1521 under epidural anesthesia. Bulb suctioned after delivery. Spontaneous respirations and cry. 3-vessel cord. Apgars 9-9. Short cord. Cord clamped x2, after 2 min delay, then cut by CNM. Placenta, membranes, and cord expelled at 1528, Onofre. Perineum inspected, appears intact. Patient tolerated procedure well. LABOR SUMMARY EDC: 06/29/2016 00:00 No. Babies in Womb: 1 Attempted: No Labor Anesthesia: Epidural LABOR INFORMATION Reason for Induction: Not Applicable Onset of Labor: 06/25/2016 10:30 Complete Dilatation: 06/25/2016 15:18 Oxytocin: N/A Group B Beta Strep: NEGATIVE Antibiotics # of Doses: 0 Steroids Given: None Reason Steroids Not Administered: Not Applicable MEMBRANES Membranes Rupture Method: Artificial Rupture of Membranes: 06/25/2016 14:37 Length of Rupture (hr): 0.73 Amniotic Fluid Color: Clear Amniotic Fluid Amount: Moderate Amniotic Fluid Odor: Normal STAGES OF LABOR Stage 1 hr: 4 Stage 1 min: 48 Stage 2 hr: 0 Stage 2 min: 3 Stage 3 hr: 0 Stage 3 min: 7 Total Time in Labor hr: 4 Total Time in Labor min: 58 VAGINAL DELIVERY Episiotomy: None Laceration Extension: N/A Laceration Type: None Laceration Repair: Not Applicable Sponge Count Correct: N/A Sharps Count Correct: Yes BABY A INFORMATION Delivery Date/Time: 06/25/2016 15:21 Method of Delivery: Vaginal Born in Route : No : N/A Forceps: N/A Vacuum Extraction: N/A Shoulder Dystocia : No PRESENTATION/POSITION BABY A Presentation: Cephalic Cephalic Presentation: N/A Vertex Position: Right Occipital Anterior Breech Presentation: N/A PLACENTA INFORMATION BABY A Placenta Delivery Time : 06/25/2016 15:28 Placenta Method of Delivery: Spontaneous Placenta Status: Delivered SCORES BABY A Heart Rate 1 min: >100 bpm Resp Effort 1 min: Good Cry Reflex Irritability 1 min: Cough or Sneeze or Pulls Away Muscle Tone 1 min: Active Motion Color 1 min: Body [place], Extremities Blue Resuscitation Effort 1 min: Tactile Stimulation SCORE 1 MIN: 9 Heart Rate 5 min: >100 bpm Resp Effort 5 min: Good Cry Reflex Irritability 5 min: Cough or Sneeze or Pulls Away Muscle Tone 5 min: Active Motion Color 5 min: Body [place], Extremities Blue SCORE 5 MIN: 9 INFANT INFORMATION BABY A Gestational Age at Delivery: 39.3 Gestational Status: Full Term- 39- 40.6 Weeks Infant Outcome : Liveborn Infant Condition : Stable Sex: Male IDENTIFICATION BABY A Infant Verification Date/Time: 06/25/2016 16:15 ID Band Number: [id number] Mother's Name Verified: Yes Infant RN Verifying : D Bellavance RNC Additional Verifying Personnel: COLE Roberts RN WEIGHT/LENGTH BABY A Infant Birthweight (gm): 3799 Weight (lb): 8 Infant Weight (oz): 6 Length (in): 20.00 Infant Length (cm): 50.80 CORD INFORMATION BABY A No. Cord Vessels: 3 Nuchal Cord : N/A Cord Blood Taken: Yes-For Eval (Mom's Blood Type - or O+) Suction: None ASSESSMENT BABY A Complications: None Physical Findings at Delivery: Within Normal Limits Respirations: Appears Normal Skin to Skin: Yes Skin to Skin Time (min): 10 Toggle Press Operator/ALS Called : No Transferred To: Remains with Mother BABY B INFORMATION : N/A SIGNATURES Assignment: Carolyn Trejo MD Signature: with User ID: Michelle : with User ID: Michelle : I personally evaluated and examined the patient in conjunction with the MLP and agree with the assessment, treatment plan and disposition.
--- NOTE | 2016-07-01 15:40 | L&D Discharge Summary ---
OB Discharge Summary Datetime Report Generated by CPN: 07/01/2016 15:40 DISCHARGE DIAGNOSIS Diagnosis/Symptoms: False Labor Gestation: 39.3 Number of Babies in Womb: 1 Parity: 1 DIET/ACTIVITY/RESTRICTIONS Diet: Regular Activity: Normal Activity TEACHING/INSTRUCTIONS/REFERRALS Instructions Given To: Patient and friends Instructions Understood: Patient Verbalized Understanding; Support Person Verbalized Understanding Referrals: None Educational Materials- Other: Dehydration DISCHARGE INFORMATION Discharged AMA: No Discharge Date/Time: 06/20/2016 20:49 Discharged To: Home Discharge Provider Name: Mendez Accompanied By: Friends Discharge Method: Ambulatory Condition: Stable FOLLOW UP INFORMATION Follow Up With: [facility] Follow Up On: As Scheduled Follow Up Phone Number: [facility] [employer] [facility] - Comments: Discussed dehydration and signs and symptoms of when to return to office or hospital with patient and friends. All, patient and friends, verbalized understanding. Patient discharged home for false labor via ambulation in stable condition. GENERAL INSTR-CALL PROVIDER IF: Contractions: Contractions or cramps become more frequent than 8 in one hour or 4 in 20 minutes; Regular painful contractions every 5 minutes or less for one hour. Time your contractions from the beginning of one to the beginning of the next Pressure: Pressure in your vagina or lower abdomen that may feel like the baby is pushing down Period Like Cramps: Period-like cramps or low dull backache that may come and go Cramps/Diarrhea: Abdominal cramps that may be accompanied by diarrhea Gush of Fluid/Blood: Gush of fluid or blood from your vagina (it is normal to have spotting after vaginal exam or intercourse) Vaginal Discharge: Change in the type or amount of vaginal discharge Decreased Movement: Your baby is not moving as much as usual- 4 movements in 1 hour after drinking and resting on side Temperature: Temperature greater than 100.0(F) orally
--- NOTE | 2016-07-03 18:01 | L&D General Admission ---
General Admit Datetime Report Generated by CPN: 07/03/2016 18:00 INFORMATION Patient Age: 29 (10/31/2013 13:25:QS system process) EDC: 06/29/2016 00:00 (06/20/2016 18:55:Inge Trejo RN) : 7 (06/20/2016 18:55:Katie Mai RN) Para: 1 (06/20/2016 18:55:Katie Mai RN) Term: 1 (06/20/2016 18:55:Jemima Roberts RN) : 0 (06/20/2016 18:55:Jemima Roberts RN) Spontaneous Abortions: 5 (06/20/2016 18:55:Jemima Roberts RN) Induced Abortions: 0 (06/20/2016 18:55:Jemima Roberts RN) Livin (06/20/2016 18:55:Jemima Roberts RN) Cesareans: 0 (06/20/2016 18:55:Jemima Roberts RN) VBACs: 0 (06/20/2016 18:55:Jemima Roberts RN) Ectopic: 2 (06/20/2016 18:55:Jemima Roberts RN) Multiple Births: 0 (06/20/2016 18:55:Jemima Roberts RN) Baby, Number in Womb: 1 (06/20/2016 18:55:Katie Mai RN) CARE Primary Community Mental Health Social Worker: [facility] (06/20/2016 18:55:Katie Mai RN) Month of 1st Visit: sept (06/20/2016 18:55:ANNE-MARIE Aguero) Adequate Care: Yes (06/20/2016 18:55:Katie Mai RN) Prepregnancy Weight (lb): 130 (06/20/2016 18:55:ANNE-MARIE Aguero) Prepregnancy Weight (kg): 59.1 (06/20/2016 18:55:QS system process) Height (in): 62 (06/27/2016 11:04:QS system process) ALLERGIES Medication Allergy: No (06/20/2016 18:55:Katie Mai RN) Medication Allergies: No Known Allergies (04/07/2015) (10/31/2015 13:25:QS system process) Latex Allergy: No Latex Allergies (06/20/2016 18:55:Katie Mai RN) Food Allergies: N/A (06/20/2016 18:55:Katie Mai RN) Environmental Allergies: N/A (06/20/2016 18:55:Katie Mai RN) COMMUNICATION Primary Language: Portuguese (06/20/2016 18:55:Katie Mai RN) Medical Tx Preferred Language: Portuguese (06/20/2016 18:55:Katie Mai RN) Communication Barrier(s): None (06/20/2016 18:55:Katie Mai RN) DEMOGRAPHICS Address: [address] [place] [id number] (06/20/2016 18:57:QS system process) Zipcode: [address] (06/20/2016 18:57:QS system process) Home (06/20/2016 18:57:QS system process) SSN: [id number] (10/31/2015 13:25:QS system process) Next of Kin Name: LESTER LONDON (06/20/2016 18:57:QS system process) Next of Kin (06/20/2016 18:57:QS system process) Next of Kin Relationship: OR (06/20/2016 18:57:QS system process) Date of : 1985 (10/31/2015 13:25:QS system process) Marital Status: (10/31/2015 13:25:QS system process) Sex: Female (10/31/2015 13:25:QS system process) Race: (10/31/2015 13:25:QS system process) Ethnicity: Non- or (10/31/2015 13:25:QS system process) Bahai: Advent (10/31/2015 13:25:QS system process) FOB Involved: Yes (06/20/2016 18:55:Katie Mai RN) Father of Baby Name: Lester London (06/20/2016 18:55:Katie Mai RN) DRUG AND ALCOHOL USE Alcohol: No (06/20/2016 18:55:Katie Mai RN) Cigarettes: Former Smoker. [id number] (06/20/2016 18:55:Katie Mai RN) Marijuana: No (06/20/2016 18:55:Katie Mai RN) Cocaine: No (06/20/2016 18:55:Katie Mai RN) Other Illicit Drugs: No (06/20/2016 18:55:Katie Mai RN) VACCINE HISTORY Influenza Vaccine: Yes (06/20/2016 18:55:Katie Mai RN) Pneumococcal Vaccine: No (06/20/2016 18:55:Katie Mai RN) Tetanus Vaccine: No (06/20/2016 18:55:Katie Mai RN) Tdap Vaccine: No (06/20/2016 18:55:Katie Mai RN) Hepatitis B Vaccine: No (06/20/2016 18:55:Katie Mai RN) Wrapping Machine Tender: [facility] (06/20/2016 18:55:Katie Mai RN) Feeding Preference: Breast (06/20/2016 18:55:Katie Mai RN) Benefit of Breast Feed Discussed: Yes (06/20/2016 18:55:Katie Mai RN) Circumcision: Yes (06/20/2016 18:55:Katie Mai RN) Classes Attended: No (06/20/2016 18:55:Katie Mai RN) Tubal Ligation: No (06/20/2016 18:55:Katie Mai RN) Tubal Authorization Signed: N/A (06/20/2016 18:55:Katie Mai RN) Consent: N/A (06/20/2016 18:55:Katie Mai RN) Consent Signed: N/A (06/20/2016 18:55:Katie aMi RN) Plans for Labor and Delivery: None (06/20/2016 18:55:Katie Mai RN) Support Person: Lester London (06/20/2016 18:55:Katie Mai RN) Support Person Relationship: Significant Other (06/20/2016 18:55:Katie Mai RN) Cultural/Spritual Practice: No (06/20/2016 18:55:Katie Mai RN) Spir/Cult Dietary Needs: No (06/20/2016 18:55:Katie Mai RN) LIVING SITUATION/DISCHARGE PLAN Living Arrangements: House (06/20/2016 18:55:Katie Mai RN) Adequate Access to:: Electric; Heat; Refrigeration; Plumbing/Running water; Phone; Transportation (06/20/2016 18:55:Katie Mai RN) WIC Program: Yes (06/20/2016 18:55:Katie Mai RN) Discharge Procedures Analyst Person: Lester London (06/20/2016 18:55:Katie Mai RN) Person to Help after Discharge: Lester London (06/20/2016 18:55:Katie Mai RN) Currently Using Commun Resources: No (06/20/2016 18:55:Katie Mai RN) Outside Agency/Director External Communications: No (06/20/2016 18:55:Katie Mai RN) Car Seat for Discharge: Yes (06/20/2016 18:55:Katie Mai RN) Adoption Requested: No (06/20/2016 18:55:Katie Mai RN) Pt Contact w/ Post : N/A (06/20/2016 18:55:Katie Mai RN) LABS Blood Type: O Positive (06/20/2016 18:55:Jemima Roberts RN) Antibody Screen: NEGATIVE (06/20/2016 18:55:Jemima Roberts RN) Hemoglobin: 13.0 (06/27/2016 07:03:QS system process) Hematocrit: 38.6 (06/27/2016 07:03:QS system process) MCV: 89 (06/27/2016 07:03:QS system process) Group Beta Strep: NEGATIVE (06/20/2016 18:55:Jemima Roberts RN) Gonorrhea: Negative (06/20/2016 18:55:Jemima Roberts RN) Chlamydia: Negative (06/20/2016 18:55:Jemima Roberts RN) RPR/VDRL: Nonreactive (06/20/2016 18:55:Jemima Roberts RN) Hepatitis B: Negative (06/20/2016 18:55:Jemima Roberts RN) Rubella: Immune (06/20/2016 18:55:Jemima Roberts RN) OB/PREVIOUS HISTORY Previous Procedures: Ultrasound (06/20/2016 18:55:Katie Mai RN) Current Procedures: Ultrasound (06/20/2016 18:55:Katie Mai RN) History of Previous : No (06/20/2016 18:55:Katie Mai RN) History of Gestational Diabetes: No (06/20/2016 18:55:Katie Mai RN) History of PIH: No (06/20/2016 18:55:Katie Mai RN) History of Incompetent Cervix: No (06/20/2016 18:55:Katie Mai RN) History of Placenta Previa/Abrup: No (06/20/2016 18:55:aKtie Mai RN) History of Macrosomia: No (06/20/2016 18:55:Katie Mai RN) History of IUGR: No (06/20/2016 18:55:Katie Mai RN) History of Hemorrhage: No (06/20/2016 18:55:Katie Mai RN) History of Loss/Stillborn: No (06/20/2016 18:55:Katie Mai RN) History of : No (06/20/2016 18:55:Katie Mai RN) History of D (Rh) Sensitization: No (06/20/2016 18:55:Katie Mai RN) History Recurrent Loss/Stillborn: No (06/20/2016 18:55:Katie Mai RN) History Depression/PP Depression: Yes (06/20/2016 18:55:Jemima Roberts RN) History of Uterine Anomaly/ANNELISE: No (06/20/2016 18:55:Katie Mai RN) History of Infertility: No (06/20/2016 18:55:Katie Mai RN) History of ART Treatment: No (06/20/2016 18:55:Katie Mai RN) History of ANNELISE: No (06/20/2016 18:55:Katie Mai RN) Comments Obstetrical History: G1 - 2006 - ectopic G2 - 2007 - SAB G3 - 2008 - ectopic G4 - 2007 - SAB G5 - 2011 - , Boy G6 - 2015 - SAB G7 - Current (06/20/2016 18:55:Katie Mai RN) MEDICAL HISTORY Med Hx Diabetes: No (06/20/2016 18:55:Katie Mai RN) Med Hx Hypertension: No (06/20/2016 18:55:Katie Mai RN) Med Hx Heart Disease: No (06/20/2016 18:55:Katie Mai RN) Med Hx Autoimmune Disorder: No (06/20/2016 18:55:Katie Mai RN) Med Hx Kidney Disease/UTI: No (06/20/2016 18:55:Katie Mai RN) Med Hx Neurologic/Epilepsy: No (06/20/2016 18:55:Katie Mai RN) Med Hx Psychiatric Disorders: Yes (06/20/2016 18:55:Jemima Roberts RN) Med Hx Hepatitis/Liver Disease: No (06/20/2016 18:55:Katie Mai RN) Med Hx Varicosities/Phlebitis: No (06/20/2016 18:55:Katie Mai RN) Med Hx Thyroid Dysfunction: No (06/20/2016 18:55:Katie Mai RN) Med Hx Trauma/Violence: No (06/20/2016 18:55:Katie Mai RN) Med Hx Blood Transfusion: No (06/20/2016 18:55:Katie Mai RN) Med Hx Pulmonary (Asthma,TB): Yes (06/20/2016 18:55:Katie Mai RN) Med Hx Breast: No (06/20/2016 18:55:Katie Mai RN) Med Hx EMR SPECIALIST Surgery: No (06/20/2016 18:55:Katie Mai RN) Med Hx Hospitalization/Surgery: Yes (06/20/2016 18:55:Jemima Roberts RN) Med Hx Anesthetic Complications: No (06/20/2016 18:55:Katie Mai RN) Med Hx Abnormal Pap Smear: Yes (06/20/2016 18:55:Katie Mai RN) Other Medical Diseases: No (06/20/2016 18:55:Katie Mai RN) Med Hx Significant Family Hx: No (06/20/2016 18:55:Katie Mai RN) Details of Med/Surg Hx: DEPRESSION _ ANXIETY Asthma, CHILDBIRTH abnormal pap at 15 (06/20/2016 18:55:Jemima Roberts RN) INFECTIOUS HISTORY Inf Hx Gonorrhea: No (06/20/2016 18:55:Katie Mai RN) Inf Hx Chlamydia: No (06/20/2016 18:55:Katie Mai RN) Inf Hx Syphilis: No (06/20/2016 18:55:Katie Mai RN) Inf Hx HIV/AIDS: No (06/20/2016 18:55:Katie Mai RN) Inf Hx Human Papilloma Virus: No (06/20/2016 18:55:Katie Mai RN) Inf Hx Pt/Partner Genital Herpes: No (06/20/2016 18:55:Katie Mai RN) Inf Hx Tuberculosis/Exposure: No (06/20/2016 18:55:Katie Mai RN) Inf Hx Hepatitis B,C: No (06/20/2016 18:55:Ktaie Mai RN) Inf Hx Rash or Viral Illness: No (06/20/2016 18:55:Katie Mai RN) GENETIC HISTORY Gen Hx Age >=35 at YOH[place]: No (06/20/2016 18:55:Katie Mai RN) Gen Hx Thalassemia: No (06/20/2016 18:55:Katie Mai RN) Gen Hx Congenital Heart Defect: No (06/20/2016 18:55:Katie Mai RN) Gen Hx Neural Tube Defect: No (06/20/2016 18:55:Katie Mai RN) Gen Hx Down's Syndrome: No (06/20/2016 18:55:Katie Mai RN) Gen Hx Tim-Sachs: No (06/20/2016 18:55:Katie Mai RN) Gen Hx Jase: No (06/20/2016 18:55:Katie Mai RN) Gen Hx Familial Dysautonomia: No (06/20/2016 18:55:Katie Mai RN) Gen Hx Sickle Cell Disease/Trait: No (06/20/2016 18:55:Katie Mai RN) Gen Hx Hemophilia/Blood Disorder: No (06/20/2016 18:55:Katie Mai RN) Gen Hx Muscular Dystrophy: No (06/20/2016 18:55:Katie Mai RN) Gen Hx Cystic Fibrosis: No (06/20/2016 18:55:Katie Mai RN) Gen Hx Huntingtons Chorea: No (06/20/2016 18:55:Katie Mai RN) Gen Hx Mental Retardation/Autism: No (06/20/2016 18:55:Katie Mai RN) Gen Hx Tested for Fragile X: No (06/20/2016 18:55:Katie Mai RN) Gen Hx Other Inher/Chromosomal: No (06/20/2016 18:55:Katie Mai RN) Gen Hx Maternal Metabolic DO: No (06/20/2016 18:55:Katie Mai RN) Gen Hx Pt Father or FOB Defect: No (06/20/2016 18:55:Katie Mai RN) Gen Hx Other Genetic History: No (06/20/2016 18:55:Katie Mai RN) Gen Hx Drugs/Meds since LMP: Yes (06/20/2016 18:55:Katie Mai RN) Gen Hx Medications: PNV, Folic Acid, Zyrtec and Tums (06/20/2016 18:55:Katie Mai RN)
--- NOTE | 2016-07-03 18:02 | L&D General Admission ---
General Admit Datetime Report Generated by CPN: 07/03/2016 18:00 INFORMATION Patient Age: 29 (10/31/2015 13:25:QS system process) EDC: 06/29/2016 00:00 (06/20/2016 18:55:Inge Trejo RN) : 7 (06/20/2016 18:55:Katie Mai RN) Para: 1 (06/20/2016 18:55:Katie Mai RN) Term: 1 (06/20/2016 18:55:Jemima Roberts RN) : 0 (06/20/2016 18:55:Jemima Roberts RN) Spontaneous Abortions: 5 (06/20/2016 18:55:Jemima Roberts RN) Induced Abortions: 0 (06/20/2016 18:55:Jemima Roberts RN) Livin (06/20/2016 18:55:Jemima Roberts RN) Cesareans: 0 (06/20/2016 18:55:Jemima Roberts RN) VBACs: 0 (06/20/2016 18:55:Jemima Roberts RN) Ectopic: 2 (06/20/2016 18:55:Jemima Roberts RN) Multiple Births: 0 (06/20/2016 18:55:Jemima Roberts RN) Baby, Number in Womb: 1 (06/20/2016 18:55:Katie Mai RN) CARE Primary Sawing And Assembly Supervisor: [facility] (06/20/2016 18:55:Katie Mai RN) Month of 1st Visit: sept (06/20/2016 18:55:ANNE-MARIE Aguero) Adequate Care: Yes (06/20/2016 18:55:Katie Mai RN) Prepregnancy Weight (lb): 130 (06/20/2016 18:55:ANNE-MARIE Aguero) Prepregnancy Weight (kg): 59.1 (06/20/2016 18:55:QS system process) Height (in): 62 (06/27/2016 11:04:QS system process) ALLERGIES Medication Allergy: No (06/20/2016 18:55:Katie Mai RN) Medication Allergies: No Known Allergies (04/07/2015) (10/31/2015 13:25:QS system process) Latex Allergy: No Latex Allergies (06/20/2016 18:55:Katie Mai RN) Food Allergies: N/A (06/20/2016 18:55:Katie Mai RN) Environmental Allergies: N/A (06/20/2016 18:55:Katie Mai RN) COMMUNICATION Primary Language: Irish (06/20/2016 18:55:Katie Mai RN) Medical Tx Preferred Language: Irish (06/20/2016 18:55:Katie Mai RN) Communication Barrier(s): None (06/20/2016 18:55:Katie Mai RN) DEMOGRAPHICS Address: [address] [place] [id number] (06/20/2016 18:57:QS system process) Zipcode: [address] (06/20/2016 18:57:QS system process) Home (06/20/2016 18:57:QS system process) SSN: [id number] (10/31/2015 13:25:QS system process) Next of Kin Name: LESTER LONDON (06/20/2016 18:57:QS system process) Next of Kin (06/20/2016 18:57:QS system process) Next of Kin Relationship: OR (06/20/2016 18:57:QS system process) Date of : 1985 (10/31/2015 13:25:QS system process) Marital Status: (10/31/2015 13:25:QS system process) Sex: Female (10/31/2015 13:25:QS system process) Race: (10/31/2015 13:25:QS system process) Ethnicity: Non- or (10/31/2015 13:25:QS system process) Gnosticist: Jew (10/31/2015 13:25:QS system process) FOB Involved: Yes (06/20/2016 18:55:Katie Mai RN) Father of Baby Name: Lester London (06/20/2016 18:55:Katie Mai RN) DRUG AND ALCOHOL USE Alcohol: No (06/20/2016 18:55:Katie Mai RN) Cigarettes: Former Smoker. [id number] (06/20/2016 18:55:Katie Mai RN) Marijuana: No (06/20/2016 18:55:Katie Mai RN) Cocaine: No (06/20/2016 18:55:Katie Mai RN) Other Illicit Drugs: No (06/20/2016 18:55:Katie Mai RN) VACCINE HISTORY Influenza Vaccine: Yes (06/20/2016 18:55:Katie Mai RN) Pneumococcal Vaccine: No (06/20/2016 18:55:Katie Mai RN) Tetanus Vaccine: No (06/20/2016 18:55:Katie Mai RN) Tdap Vaccine: No (06/20/2016 18:55:Katie Mai RN) Hepatitis B Vaccine: No (06/20/2016 18:55:Katie Mai RN) Wood Craftsman: [facility] (06/20/2016 18:55:Katie Mai RN) Feeding Preference: Breast (06/20/2016 18:55:Katie Mai RN) Benefit of Breast Feed Discussed: Yes (06/20/2016 18:55:Katie Mai RN) Circumcision: Yes (06/20/2016 18:55:Katie Mai RN) Classes Attended: No (06/20/2016 18:55:Katie Mai RN) Tubal Ligation: No (06/20/2016 18:55:Katie Mai RN) Tubal Authorization Signed: N/A (06/20/2016 18:55:Katie Mai RN) Consent: N/A (06/20/2016 18:55:Katie Mai RN) Consent Signed: N/A (06/20/2016 18:55:Katie Mai RN) Plans for Labor and Delivery: None (06/20/2016 18:55:Katie Mai RN) Support Person: Lester London (06/20/2016 18:55:Katie Mai RN) Support Person Relationship: Significant Other (06/20/2016 18:55:Katie Mai RN) Cultural/Spritual Practice: No (06/20/2016 18:55:Katie Mai RN) Spir/Cult Dietary Needs: No (06/20/2016 18:55:Katie Mai RN) LIVING SITUATION/DISCHARGE PLAN Living Arrangements: House (06/20/2016 18:55:Katie Mai RN) Adequate Access to:: Electric; Heat; Refrigeration; Plumbing/Running water; Phone; Transportation (06/20/2016 18:55:Katie Mai RN) WIC Program: Yes (06/20/2016 18:55:Kaite Mai RN) Discharge Automation Engineering Technician Person: Lester London (06/20/2016 18:55:Katie Mai RN) Person to Help after Discharge: Lester London (06/20/2016 18:55:Katie Mai RN) Currently Using Commun Resources: No (06/20/2016 18:55:Katie Mai RN) Outside Agency/Diesel Fitter Mechanic: No (06/20/2016 18:55:Katie Mai RN) Car Seat for Discharge: Yes (06/20/2016 18:55:Katie Mai RN) Adoption Requested: No (06/20/2016 18:55:Katie Mai RN) Pt Contact w/ Post : N/A (06/20/2016 18:55:Katie Mai RN) LABS Blood Type: O Positive (06/20/2016 18:55:Jemima Roberts RN) Antibody Screen: NEGATIVE (06/20/2016 18:55:Jemima Roberts RN) Hemoglobin: 13.0 (06/27/2016 07:03:QS system process) Hematocrit: 38.6 (06/27/2016 07:03:QS system process) MCV: 89 (06/27/2016 07:03:QS system process) Group Beta Strep: NEGATIVE (06/20/2016 18:55:Jemima Roberts RN) Gonorrhea: Negative (06/20/2016 18:55:Jemima Roberts RN) Chlamydia: Negative (06/20/2016 18:55:Jemima Roberts RN) RPR/VDRL: Nonreactive (06/20/2016 18:55:Jemima Roberts RN) Hepatitis B: Negative (06/20/2016 18:55:Jemima Roberts RN) Rubella: Immune (06/20/2016 18:55:Jemima Roberts RN) OB/PREVIOUS HISTORY Previous Procedures: Ultrasound (06/20/2016 18:55:Katie Mai RN) Current Procedures: Ultrasound (06/20/2016 18:55:Katie Mai RN) History of Previous : No (06/20/2016 18:55:Katie Mai RN) History of Gestational Diabetes: No (06/20/2016 18:55:Katie Mai RN) History of PIH: No (06/20/2016 18:55:Katie Mai RN) History of Incompetent Cervix: No (06/20/2016 18:55:Katie Mai RN) History of Placenta Previa/Abrup: No (06/20/2016 18:55:Katie Mai RN) History of Macrosomia: No (06/20/2016 18:55:Katie Mai RN) History of IUGR: No (06/20/2016 18:55:Katie Mai RN) History of Hemorrhage: No (06/20/2016 18:55:Katie Mai RN) History of Loss/Stillborn: No (06/20/2016 18:55:Katie Mai RN) History of : No (06/20/2016 18:55:Katie Mai RN) History of D (Rh) Sensitization: No (06/20/2016 18:55:Katie Mia RN) History Recurrent Loss/Stillborn: No (06/20/2016 18:55:Katie Mai RN) History Depression/PP Depression: Yes (06/20/2016 18:55:Jemima Roberts RN) History of Uterine Anomaly/ANNELISE: No (06/20/2016 18:55:Katie Mai RN) History of Infertility: No (06/20/2016 18:55:Katie Mai RN) History of ART Treatment: No (06/20/2016 18:55:Katei Mai RN) History of ANNELISE: No (06/20/2016 18:55:Katie Mai RN) Comments Obstetrical History: G1 - 2006 - ectopic G2 - 2007 - SAB G3 - 2008 - ectopic G4 - 2007 - SAB G5 - 2011 - , Boy G6 - 2015 - SAB G7 - Current (06/20/2016 18:55:Katie Mai RN) MEDICAL HISTORY Med Hx Diabetes: No (06/20/2016 18:55:Katie Mai RN) Med Hx Hypertension: No (06/20/2016 18:55:Katie Mai RN) Med Hx Heart Disease: No (06/20/2016 18:55:Katie Mai RN) Med Hx Autoimmune Disorder: No (06/20/2016 18:55:Katie Mai RN) Med Hx Kidney Disease/UTI: No (06/20/2016 18:55:Katie Mai RN) Med Hx Neurologic/Epilepsy: No (06/20/2016 18:55:Katie Mai RN) Med Hx Psychiatric Disorders: Yes (06/20/2016 18:55:Jemima Roberts RN) Med Hx Hepatitis/Liver Disease: No (06/20/2016 18:55:Katie Mai RN) Med Hx Varicosities/Phlebitis: No (06/20/2016 18:55:Katie Mai RN) Med Hx Thyroid Dysfunction: No (06/20/2016 18:55:Katie Mai RN) Med Hx Trauma/Violence: No (06/20/2016 18:55:Katie Mai RN) Med Hx Blood Transfusion: No (06/20/2016 18:55:Katie Mai RN) Med Hx Pulmonary (Asthma,TB): Yes (06/20/2016 18:55:Katie Mai RN) Med Hx Breast: No (06/20/2016 18:55:Katie Mai RN) Med Hx SUPERVISOR TYPE PHOTOGRAPHY Surgery: No (06/20/2016 18:55:Katie Mai RN) Med Hx Hospitalization/Surgery: Yes (06/20/2016 18:55:Jemima Roberts RN) Med Hx Anesthetic Complications: No (06/20/2016 18:55:Katie Mai RN) Med Hx Abnormal Pap Smear: Yes (06/20/2016 18:55:Katie Mai RN) Other Medical Diseases: No (06/20/2016 18:55:Katie Mai RN) Med Hx Significant Family Hx: No (06/20/2016 18:55:Katie Mai RN) Details of Med/Surg Hx: DEPRESSION _ ANXIETY Asthma, CHILDBIRTH abnormal pap at 13 (06/20/2016 18:55:Jemima Roberts RN) INFECTIOUS HISTORY Inf Hx Gonorrhea: No (06/20/2016 18:55:Katie Mai RN) Inf Hx Chlamydia: No (06/20/2016 18:55:Katie Mai RN) Inf Hx Syphilis: No (06/20/2016 18:55:Katie Mai RN) Inf Hx HIV/AIDS: No (06/20/2016 18:55:Katie Mai RN) Inf Hx Human Papilloma Virus: No (06/20/2016 18:55:Katie Mai RN) Inf Hx Pt/Partner Genital Herpes: No (06/20/2016 18:55:Katie Mai RN) Inf Hx Tuberculosis/Exposure: No (06/20/2016 18:55:Katie Mai RN) Inf Hx Hepatitis B,C: No (06/20/2016 18:55:Katie Mai RN) Inf Hx Rash or Viral Illness: No (06/20/2016 18:55:Katie Mai RN) GENETIC HISTORY Gen Hx Age >=35 at YOHANA: No (06/20/2016 18:55:Katie Mai RN) Gen Hx Thalassemia: No (06/20/2016 18:55:Katie Mai RN) Gen Hx Congenital Heart Defect: No (06/20/2016 18:55:Katie Mai RN) Gen Hx Neural Tube Defect: No (06/20/2016 18:55:Katie Mai RN) Gen Hx Down's Syndrome: No (06/20/2016 18:55:Katie Mai RN) Gen Hx Tim-Sachs: No (06/20/2016 18:55:Katie Mai RN) Gen Hx Jase: No (06/20/2016 18:55:Katie Mai RN) Gen Hx Familial Dysautonomia: No (06/20/2016 18:55:aKtie Mai RN) Gen Hx Sickle Cell Disease/Trait: No (06/20/2016 18:55:Katie Mai RN) Gen Hx Hemophilia/Blood Disorder: No (06/20/2016 18:55:Katie Mai RN) Gen Hx Muscular Dystrophy: No (06/20/2016 18:55:Katie Mai RN) Gen Hx Cystic Fibrosis: No (06/20/2016 18:55:Katie Mai RN) Gen Hx Huntingtons Chorea: No (06/20/2016 18:55:Katie Mai RN) Gen Hx Mental Retardation/Autism: No (06/20/2016 18:55:Katie Mai RN) Gen Hx Tested for Fragile X: No (06/20/2016 18:55:Katie Mai RN) Gen Hx Other Inher/Chromosomal: No (06/20/2016 18:55:Katie Mai RN) Gen Hx Maternal Metabolic DO: No (06/20/2016 18:55:Katie Mai RN) Gen Hx Pt Father or FOB Defect: No (06/20/2016 18:55:Katie Mai RN) Gen Hx Other Genetic History: No (06/20/2016 18:55:Katie Mai RN) Gen Hx Drugs/Meds since LMP: Yes (06/20/2016 18:55:Katie Mai RN) Gen Hx Medications: PNV, Folic Acid, Zyrtec and Tums (06/20/2016 18:55:Katie Mai RN)
--- NOTE | 2016-07-03 20:21 | Delivery Summary ---
Del Sum A-C Datetime Report Generated by CPN: 07/03/2016 20:20 DELIVERY PERSONNEL DELIVERY PERSONNEL: [id number] Delivery Doctor:: Mary Kruger CNM Labor and Delivery Nurse:: ANNE-MARIE Aguero Student Observers:: Orly APONTE CNM; SN Bridgette DAWN/LOBO: [facility] MATERNAL INFORMATION Delivery Anesthesia: Epidural Medications After Delivery: Pitocin Bolus-Please Comment Estimated Blood Loss (ml): 250 Maternal Complications: None Provider Comments: of viable male in vertex OA to YEN at 1521 under epidural anesthesia. Bulb suctioned after delivery. Spontaneous respirations and cry. 3-vessel cord. Apgars 9-9. Short cord. Cord clamped x2, after 2 min delay, then cut by CNM. Placenta, membranes, and cord expelled at 1528, Onofre. Perineum inspected, appears intact. Patient tolerated procedure well. LABOR SUMMARY EDC: 06/29/2016 00:00 No. Babies in Womb: 1 Attempted: No Labor Anesthesia: Epidural LABOR INFORMATION Reason for Induction: Not Applicable Onset of Labor: 06/25/2016 10:30 Complete Dilatation: 06/25/2016 15:18 Oxytocin: N/A Group B Beta Strep: NEGATIVE Antibiotics # of Doses: 0 Steroids Given: None Reason Steroids Not Administered: Not Applicable MEMBRANES Membranes Rupture Method: Artificial Rupture of Membranes: 06/25/2016 14:37 Length of Rupture (hr): 0.73 Amniotic Fluid Color: Clear Amniotic Fluid Amount: Moderate Amniotic Fluid Odor: Normal STAGES OF LABOR Stage 1 hr: 4 Stage 1 min: 48 Stage 2 hr: 0 Stage 2 min: 3 Stage 3 hr: 0 Stage 3 min: 7 Total Time in Labor hr: 4 Total Time in Labor min: 58 VAGINAL DELIVERY Episiotomy: None Laceration Extension: N/A Laceration Type: None Laceration Repair: Not Applicable Sponge Count Correct: N/A Sharps Count Correct: Yes BABY A INFORMATION Delivery Date/Time: 06/25/2016 15:21 Method of Delivery: Vaginal Born in Route : No : N/A Forceps: N/A Vacuum Extraction: N/A Shoulder Dystocia : No PRESENTATION/POSITION BABY A Presentation: Cephalic Cephalic Presentation: N/A Vertex Position: Right Occipital Anterior Breech Presentation: N/A PLACENTA INFORMATION BABY A Placenta Delivery Time : 06/25/2016 15:28 Placenta Method of Delivery: Spontaneous Placenta Status: Delivered SCORES BABY A Heart Rate 1 min: >100 bpm Resp Effort 1 min: Good Cry Reflex Irritability 1 min: Cough or Sneeze or Pulls Away Muscle Tone 1 min: Active Motion Color 1 min: Body [place], Extremities Blue Resuscitation Effort 1 min: Tactile Stimulation SCORE 1 MIN: 9 Heart Rate 5 min: >100 bpm Resp Effort 5 min: Good Cry Reflex Irritability 5 min: Cough or Sneeze or Pulls Away Muscle Tone 5 min: Active Motion Color 5 min: Body [place], Extremities Blue SCORE 5 MIN: 9 INFANT INFORMATION BABY A Gestational Age at Delivery: 39.3 Gestational Status: Full Term- 39- 40.6 Weeks Infant Outcome : Liveborn Infant Condition : Stable Sex: Male IDENTIFICATION BABY A Infant Verification Date/Time: 06/25/2016 16:15 ID Band Number: [id number] Mother's Name Verified: Yes Infant RN Verifying : D Bellavance RNC Additional Verifying Personnel: COLE Roberts RN WEIGHT/LENGTH BABY A Infant Birthweight (gm): 3799 Weight (lb): 8 Infant Weight (oz): 6 Length (in): 20.00 Infant Length (cm): 50.80 CORD INFORMATION BABY A No. Cord Vessels: 3 Nuchal Cord : N/A Cord Blood Taken: Yes-For Eval (Mom's Blood Type - or O+) Suction: None ASSESSMENT BABY A Complications: None Physical Findings at Delivery: Within Normal Limits Respirations: Appears Normal Skin to Skin: Yes Skin to Skin Time (min): 10 Near Eastern Archaeology Lecturer/ALS Called : No Transferred To: Remains with Mother BABY B INFORMATION : N/A SIGNATURES Assignment: Carolyn Trejo MD Signature: with User ID: Michelle : with User ID: Michelle : I personally evaluated and examined the patient in conjunction with the MLP and agree with the assessment, treatment plan and disposition.
--- NOTE | 2016-07-03 20:21 | L&D General Admission ---
General Admit Datetime Report Generated by CPN: 07/03/2016 20:20 INFORMATION Patient Age: 29 (10/31/2015 13:25:QS system process) EDC: 06/29/2016 00:00 (06/20/2016 18:55:Inge Trejo RN) : 7 (06/20/2016 18:55:Katie Mai RN) Para: 1 (06/20/2016 18:55:Katie Mai RN) Term: 1 (06/20/2016 18:55:Jemima Roberts RN) : 0 (06/20/2016 18:55:Jemima Roberts RN) Spontaneous Abortions: 5 (06/20/2016 18:55:Jemima Roberts RN) Induced Abortions: 0 (06/20/2016 18:55:Jemima Roberts RN) Livin (06/20/2016 18:55:Jemima Roberts RN) Cesareans: 0 (06/20/2016 18:55:Jemima Roberts RN) VBACs: 0 (06/20/2016 18:55:Jemima Roberts RN) Ectopic: 2 (06/20/2016 18:55:Jemima Roberts RN) Multiple Births: 0 (06/20/2016 18:55:Jemima Roberts RN) Baby, Number in Womb: 1 (06/20/2016 18:55:Katie Mai RN) CARE Primary [employer] Law Clerk: [facility] (06/20/2016 18:55:Katie Mai RN) Month of 1st Visit: sept (06/20/2016 18:55:ANNE-MARIE Aguero) Adequate Care: Yes (06/20/2016 18:55:Katie Mai RN) Prepregnancy Weight (lb): 130 (06/20/2016 18:55:ANNE-MARIE Aguero) Prepregnancy Weight (kg): 59.1 (06/20/2016 18:55:QS system process) Height (in): 62 (06/27/2016 11:04:QS system process) ALLERGIES Medication Allergy: No (06/20/2016 18:55:Katie Mai RN) Medication Allergies: No Known Allergies (04/07/2015) (10/31/2015 13:25:QS system process) Latex Allergy: No Latex Allergies (06/20/2016 18:55:Katie Mai RN) Food Allergies: N/A (06/20/2016 18:55:Katie Mai RN) Environmental Allergies: N/A (06/20/2016 18:55:Katie Mai RN) COMMUNICATION Primary Language: Khmer (06/20/2016 18:55:Katie Mai RN) Medical Tx Preferred Language: Khmer (06/20/2016 18:55:Katie Mai RN) Communication Barrier(s): None (06/20/2016 18:55:Katie Mai RN) DEMOGRAPHICS Address: [address] [place] [id number] (06/20/2016 18:57:QS system process) Zipcode: [address] (06/20/2016 18:57:QS system process) Home (06/20/2016 18:57:QS system process) SSN: [id number] (10/31/2015 13:25:QS system process) Next of Kin Name: LESTER LONDON (06/20/2016 18:57:QS system process) Next of Kin (06/20/2016 18:57:QS system process) Next of Kin Relationship: OR (06/20/2016 18:57:QS system process) Date of : 1985 (10/31/2015 13:25:QS system process) Marital Status: (10/31/2015 13:25:QS system process) Sex: Female (10/31/2015 13:25:QS system process) Race: (10/31/2015 13:25:QS system process) Ethnicity: Non- or (10/31/2015 13:25:QS system process) Holiness: Evangelical (10/31/2015 13:25:QS system process) FOB Involved: Yes (06/20/2016 18:55:Katie Mai RN) Father of Baby Name: Lester London (06/20/2016 18:55:Katie Mai RN) DRUG AND ALCOHOL USE Alcohol: No (06/20/2016 18:55:Katie Mai RN) Cigarettes: Former Smoker. [id number] (06/20/2016 18:55:Katie Mai RN) Marijuana: No (06/20/2016 18:55:Katie Mai RN) Cocaine: No (06/20/2016 18:55:Katie Mai RN) Other Illicit Drugs: No (06/20/2016 18:55:Katie Mai RN) VACCINE HISTORY Influenza Vaccine: Yes (06/20/2016 18:55:Katie Mai RN) Pneumococcal Vaccine: No (06/20/2016 18:55:Katie Mai RN) Tetanus Vaccine: No (06/20/2016 18:55:Katie Mai RN) Tdap Vaccine: No (06/20/2016 18:55:Katie Mai RN) Hepatitis B Vaccine: No (06/20/2016 18:55:Katie Mai RN) Distillation Operator: [facility] (06/20/2016 18:55:Katie Mai RN) Feeding Preference: Breast (06/20/2016 18:55:Katie Mai RN) Benefit of Breast Feed Discussed: Yes (06/20/2016 18:55:Katie Mai RN) Circumcision: Yes (06/20/2016 18:55:Katie Mai RN) Classes Attended: No (06/20/2016 18:55:Katie Mai RN) Tubal Ligation: No (06/20/2016 18:55:Katie Mai RN) Tubal Authorization Signed: N/A (06/20/2016 18:55:Katie Mai RN) Consent: N/A (06/20/2016 18:55:Katie Mai RN) Consent Signed: N/A (06/20/2016 18:55:Katie Mai RN) Plans for Labor and Delivery: None (06/20/2016 18:55:Katie Mai RN) Support Person: Lester London (06/20/2016 18:55:Katie Mai RN) Support Person Relationship: Significant Other (06/20/2016 18:55:Katie Mai RN) Cultural/Spritual Practice: No (06/20/2016 18:55:Katie Mai RN) Spir/Cult Dietary Needs: No (06/20/2016 18:55:Katie Mai RN) LIVING SITUATION/DISCHARGE PLAN Living Arrangements: House (06/20/2016 18:55:Katie Mai RN) Adequate Access to:: Electric; Heat; Refrigeration; Plumbing/Running water; Phone; Transportation (06/20/2016 18:55:Katie Mai RN) WIC Program: Yes (06/20/2016 18:55:Katie Mai RN) Discharge Placement Secretary Person: Lester London (06/20/2016 18:55:Katie Mai RN) Person to Help after Discharge: Lester London (06/20/2016 18:55:Katie Mai RN) Currently Using Commun Resources: No (06/20/2016 18:55:Katie Mai RN) Outside Agency/Production Sampler: No (06/20/2016 18:55:Katie Mai RN) Car Seat for Discharge: Yes (06/20/2016 18:55:Katie Mai RN) Adoption Requested: No (06/20/2016 18:55:Katie Mai RN) Pt Contact w/ Post : N/A (06/20/2016 18:55:Katie Mai RN) LABS Blood Type: O Positive (06/20/2016 18:55:Jemima Roberts RN) Antibody Screen: NEGATIVE (06/20/2016 18:55:Jemima Roberts RN) Hemoglobin: 13.0 (06/27/2016 07:03:QS system process) Hematocrit: 38.6 (06/27/2016 07:03:QS system process) MCV: 89 (06/27/2016 07:03:QS system process) Group Beta Strep: NEGATIVE (06/20/2016 18:55:Jemima Roberts RN) Gonorrhea: Negative (06/20/2016 18:55:Jemima Roberts RN) Chlamydia: Negative (06/20/2016 18:55:Jemima Roberts RN) RPR/VDRL: Nonreactive (06/20/2016 18:55:Jemima Roberts RN) Hepatitis B: Negative (06/20/2016 18:55:Jemima Roberts RN) Rubella: Immune (06/20/2016 18:55:Jemima Roberts RN) OB/PREVIOUS HISTORY Previous Procedures: Ultrasound (06/20/2016 18:55:Katie Mai RN) Current Procedures: Ultrasound (06/20/2016 18:55:Katie Mai RN) History of Previous : No (06/20/2016 18:55:Katie Mia RN) History of Gestational Diabetes: No (06/20/2016 18:55:Katie Mai RN) History of PIH: No (06/20/2016 18:55:Katie Mai RN) History of Incompetent Cervix: No (06/20/2016 18:55:Katie Mai RN) History of Placenta Previa/Abrup: No (06/20/2016 18:55:Katie Mai RN) History of Macrosomia: No (06/20/2016 18:55:Katie Mai RN) History of IUGR: No (06/20/2016 18:55:Katie Mai RN) History of Hemorrhage: No (06/20/2016 18:55:Katie Mai RN) History of Loss/Stillborn: No (06/20/2016 18:55:Katie Mai RN) History of : No (06/20/2016 18:55:Katie Mai RN) History of D (Rh) Sensitization: No (06/20/2016 18:55:Katie Mai RN) History Recurrent Loss/Stillborn: No (06/20/2016 18:55:Katie Mai RN) History Depression/PP Depression: Yes (06/20/2016 18:55:Jemima Roberts RN) History of Uterine Anomaly/ANNELISE: No (06/20/2016 18:55:Katie Mai RN) History of Infertility: No (06/20/2016 18:55:Katie Mai RN) History of ART Treatment: No (06/20/2016 18:55:Katie Mai RN) History of ANNELISE: No (06/20/2016 18:55:Katie Mai RN) Comments Obstetrical History: G1 - 2006 - ectopic G2 - 2007 - SAB G3 - 2008 - ectopic G4 - 2007 - SAB G5 - 2011 - , Boy G6 - 2015 - SAB G7 - Current (06/20/2016 18:55:Katie Mai RN) MEDICAL HISTORY Med Hx Diabetes: No (06/20/2016 18:55:Katie Mai RN) Med Hx Hypertension: No (06/20/2016 18:55:Katie Mai RN) Med Hx Heart Disease: No (06/20/2016 18:55:Katie Mai RN) Med Hx Autoimmune Disorder: No (06/20/2016 18:55:Katie Mai RN) Med Hx Kidney Disease/UTI: No (06/20/2016 18:55:Katie Mai RN) Med Hx Neurologic/Epilepsy: No (06/20/2016 18:55:Katie Mai RN) Med Hx Psychiatric Disorders: Yes (06/20/2016 18:55:Jemima Roberts RN) Med Hx Hepatitis/Liver Disease: No (06/20/2016 18:55:Katie Mai RN) Med Hx Varicosities/Phlebitis: No (06/20/2016 18:55:Katie Mai RN) Med Hx Thyroid Dysfunction: No (06/20/2016 18:55:Katie Mai RN) Med Hx Trauma/Violence: No (06/20/2016 18:55:Katie Mai RN) Med Hx Blood Transfusion: No (06/20/2016 18:55:Katie Mai RN) Med Hx Pulmonary (Asthma,TB): Yes (06/20/2016 18:55:Katie Mai RN) Med Hx Breast: No (06/20/2016 18:55:Katie Mai RN) Med Hx VP [employer] Surgery: No (06/20/2016 18:55:Katie Mai RN) Med Hx Hospitalization/Surgery: Yes (06/20/2016 18:55:Jemima Roberts RN) Med Hx Anesthetic Complications: No (06/20/2016 18:55:Katie Mai RN) Med Hx Abnormal Pap Smear: Yes (06/20/2016 18:55:Katie Mai RN) Other Medical Diseases: No (06/20/2016 18:55:Katie Mai RN) Med Hx Significant Family Hx: No (06/20/2016 18:55:Katie Mai RN) Details of Med/Surg Hx: DEPRESSION _ ANXIETY Asthma, CHILDBIRTH abnormal pap at 13 (06/20/2016 18:55:Jemima Roberts RN) INFECTIOUS HISTORY Inf Hx Gonorrhea: No (06/20/2016 18:55:Katie Mai RN) Inf Hx Chlamydia: No (06/20/2016 18:55:Katie Mai RN) Inf Hx Syphilis: No (06/20/2016 18:55:Katie Mai RN) Inf Hx HIV/AIDS: No (06/20/2016 18:55:Katie Mai RN) Inf Hx Human Papilloma Virus: No (06/20/2016 18:55:Katie Mai RN) Inf Hx Pt/Partner Genital Herpes: No (06/20/2016 18:55:Katie Mai RN) Inf Hx Tuberculosis/Exposure: No (06/20/2016 18:55:Katie Mai RN) Inf Hx Hepatitis B,C: No (06/20/2016 18:55:Katie Mai RN) Inf Hx Rash or Viral Illness: No (06/20/2016 18:55:Katie Mai RN) GENETIC HISTORY Gen Hx Age >=35 at YOH[place]: No (06/20/2016 18:55:Katie Mai RN) Gen Hx Thalassemia: No (06/20/2016 18:55:Katie Mai RN) Gen Hx Congenital Heart Defect: No (06/20/2016 18:55:Katie Mai RN) Gen Hx Neural Tube Defect: No (06/20/2016 18:55:Katie Mai RN) Gen Hx Down's Syndrome: No (06/20/2016 18:55:Katie Mai RN) Gen Hx Tim-Sachs: No (06/20/2016 18:55:Katie Mai RN) Gen Hx Jase: No (06/20/2016 18:55:Katie Mai RN) Gen Hx Familial Dysautonomia: No (06/20/2016 18:55:Katie Mai RN) Gen Hx Sickle Cell Disease/Trait: No (06/20/2016 18:55:Katie Mai RN) Gen Hx Hemophilia/Blood Disorder: No (06/20/2016 18:55:Katie Mai RN) Gen Hx Muscular Dystrophy: No (06/20/2016 18:55:Katie Mai RN) Gen Hx Cystic Fibrosis: No (06/20/2016 18:55:Katie Mai RN) Gen Hx Huntingtons Chorea: No (06/20/2016 18:55:Katie Mai RN) Gen Hx Mental Retardation/Autism: No (06/20/2016 18:55:Katie Mai RN) Gen Hx Tested for Fragile X: No (06/20/2016 18:55:Katie Mai RN) Gen Hx Other Inher/Chromosomal: No (06/20/2016 18:55:Katie Mai RN) Gen Hx Maternal Metabolic DO: No (06/20/2016 18:55:Katie Mai RN) Gen Hx Pt Father or FOB Defect: No (06/20/2016 18:55:Katie Mai RN) Gen Hx Other Genetic History: No (06/20/2016 18:55:Katie Mai RN) Gen Hx Drugs/Meds since LMP: Yes (06/20/2016 18:55:Katie Mai RN) Gen Hx Medications: PNV, Folic Acid, Zyrtec and Tums (06/20/2016 18:55:Katie Mai RN)
--- NOTE | 2016-07-03 20:21 | L&D Current Admission ---
Current Admit Datetime Report Generated by CPN: 07/03/2016 20:20 ADMISSION INFORMATION Current Admit Date/Time: 06/25/2016 13:43 (06/20/2016 19:37:ANNE-MARIE Aguero) Reason for Admission: Onset of Labor (06/20/2016 19:37:ANNE-MARIE Aguero) Chief Complaint: Contractions (06/20/2016 19:37:Katie Mai RN) EGA per Dates: 39.3 (06/20/2016 19:37:QS system process) Method of Arrival: Wheelchair (06/20/2016 19:37:ANNE-MARIE Aguero) Admitted From: Home (06/20/2016 19:37:ANNE-MARIE Aguero) Reason for Induction: Not Applicable (06/20/2016 19:37:ANNE-MARIE Aguero) Records Available: Yes (06/20/2016 19:37:ANNE-MARIE Aguero) General Admission Information: Reviewed (06/20/2016 19:37:ANNE-MARIE Aguero) General Admission Reviewed By: Karl XIE (06/20/2016 19:37:Makeda Sal RNC) LEARNING ASSESSMENT Knowledge Level: Understands L_D Process; Understands Care Activities; Understands Diagnosis (06/20/2016 19:37:ANNE-MARIE Aguero) Barriers to Learning: None (06/20/2016 19:37:ANNE-MARIE Aguero) Learning Readiness: Motivated (06/20/2016 19:37:ANNE-MARIE Aguero) Learns Best By: 1 to 1 Instruction; Reading; Videos; Group Discussion; Demonstration (06/20/2016 19:37:ANNE-MARIE Aguero) Learning Needs: Labor and Delivery Process; Pain Management; Symptoms to Report; Treatment Plan; Medication; Diagnosis; Nutrition; Equipment; Infant Care; Community Resources (06/20/2016 19:37:ANNE-MARIE Aguero) DOMESTIC VIOLANCE SCREENING Dom Viol Threatened/Hurt: No (06/20/2016 19:37:ANNE-MARIE Aguero) Hx of Abuse/Neglect past 2yrs: No (06/20/2016 19:37:ANNE-MARIE Aguero) Feel Unsafe Going Home: No (06/20/2016 19:37:ANNE-MARIE Aguero) Addt'l Observ Indicating Abuse: No (06/20/2016 19:37:ANNE-MARIE Aguero) Reason Unable to Complete Screen: N/A, Screen Completed (06/20/2016 19:37:ANNE-MARIE Aguero) Considered Personal Harm/Suicide: No (06/20/2016 19:37:ANNE-MARIE Aguero) NUTRITIONAL/FUNCTIONAL SCREENING Problem with Appetite >5 Days: No (06/20/2016 19:37:ANNE-MARIE Aguero) Chew/Swallow Difficulties: No (06/20/2016 19:37:ANNE-MARIE Aguero) Inappropriate Wt Gain/Loss: No (06/20/2016 19:37:ANNE-MARIE Aguero) Presence Skin Breakdown/Ulcer: No (06/20/2016 19:37:ANNE-MARIE Aguero) Special Diet: No (06/20/2016 19:37:ANNE-MARIE Aguero) Pt Requests Head Of Training And Development Visit: No (06/20/2016 19:37:ANNE-MARIE Aguero) Hx of Any of the Following?: N/A (06/20/2016 19:37:ANNE-MARIE Aguero) New Diagnosis of: N/A (06/20/2016 19:37:ANNE-MARIE Aguero) Requires Assist w/Ambulation: No (06/20/2016 19:37:ANNE-MARIE Aguero) Uses Assist Device to Ambulate: No (06/20/2016 19:37:ANNE-MARIE Aguero) Pt Requires Help w/ADL's: No (06/20/2016 19:37:ANNE-MARIE Aguero)
--- NOTE | 2016-07-03 20:24 | Delivery Summary ---
Del Sum A-C Datetime Report Generated by CPN: 07/03/2016 20:20 DELIVERY PERSONNEL DELIVERY PERSONNEL: [id number];[id number];[id number];[id number] Delivery Doctor:: Mary Kruger CNM Labor and Delivery Nurse:: ANNE-MARIE Aguero Student Observers:: Orly APONTE CNM; SN Bridgette DAWN/LOBO: [facility] MATERNAL INFORMATION Delivery Anesthesia: Epidural Medications After Delivery: Pitocin Bolus-Please Comment Estimated Blood Loss (ml): 250 Maternal Complications: None Provider Comments: of viable male in vertex OA to YEN at 1521 under epidural anesthesia. Bulb suctioned after delivery. Spontaneous respirations and cry. 3-vessel cord. Apgars 9-9. Short cord. Cord clamped x2, after 2 min delay, then cut by CNM. Placenta, membranes, and cord expelled at 1528, Onofre. Perineum inspected, appears intact. Patient tolerated procedure well. LABOR SUMMARY EDC: 06/29/2016 00:00 No. Babies in Womb: 1 Attempted: No Labor Anesthesia: Epidural LABOR INFORMATION Reason for Induction: Not Applicable Onset of Labor: 06/25/2016 10:30 Complete Dilatation: 06/25/2016 15:18 Oxytocin: N/A Group B Beta Strep: NEGATIVE Antibiotics # of Doses: 0 Steroids Given: None Reason Steroids Not Administered: Not Applicable MEMBRANES Membranes Rupture Method: Artificial Rupture of Membranes: 06/25/2016 14:37 Length of Rupture (hr): 0.73 Amniotic Fluid Color: Clear Amniotic Fluid Amount: Moderate Amniotic Fluid Odor: Normal STAGES OF LABOR Stage 1 hr: 4 Stage 1 min: 48 Stage 2 hr: 0 Stage 2 min: 3 Stage 3 hr: 0 Stage 3 min: 7 Total Time in Labor hr: 4 Total Time in Labor min: 58 VAGINAL DELIVERY Episiotomy: None Laceration Extension: N/A Laceration Type: None Laceration Repair: Not Applicable Sponge Count Correct: N/A Sharps Count Correct: Yes BABY A INFORMATION Delivery Date/Time: 06/25/2016 15:21 Method of Delivery: Vaginal Born in Route : No : N/A Forceps: N/A Vacuum Extraction: N/A Shoulder Dystocia : No PRESENTATION/POSITION BABY A Presentation: Cephalic Cephalic Presentation: N/A Vertex Position: Right Occipital Anterior Breech Presentation: N/A PLACENTA INFORMATION BABY A Placenta Delivery Time : 06/25/2016 15:28 Placenta Method of Delivery: Spontaneous Placenta Status: Delivered SCORES BABY A Heart Rate 1 min: >100 bpm Resp Effort 1 min: Good Cry Reflex Irritability 1 min: Cough or Sneeze or Pulls Away Muscle Tone 1 min: Active Motion Color 1 min: Body [place], Extremities Blue Resuscitation Effort 1 min: Tactile Stimulation SCORE 1 MIN: 9 Heart Rate 5 min: >100 bpm Resp Effort 5 min: Good Cry Reflex Irritability 5 min: Cough or Sneeze or Pulls Away Muscle Tone 5 min: Active Motion Color 5 min: Body [place], Extremities Blue SCORE 5 MIN: 9 INFANT INFORMATION BABY A Gestational Age at Delivery: 39.3 Gestational Status: Full Term- 39- 40.6 Weeks Infant Outcome : Liveborn Infant Condition : Stable Sex: Male IDENTIFICATION BABY A Infant Verification Date/Time: 06/25/2016 16:15 ID Band Number: [id number] Mother's Name Verified: Yes Infant RN Verifying : D Bellavance RNC Additional Verifying Personnel: COLE Roberts RN WEIGHT/LENGTH BABY A Infant Birthweight (gm): 3799 Weight (lb): 8 Infant Weight (oz): 6 Length (in): 20.00 Infant Length (cm): 50.80 CORD INFORMATION BABY A No. Cord Vessels: 3 Nuchal Cord : N/A Cord Blood Taken: Yes-For Eval (Mom's Blood Type - or O+) Suction: None ASSESSMENT BABY A Complications: None Physical Findings at Delivery: Within Normal Limits Respirations: Appears Normal Skin to Skin: Yes Skin to Skin Time (min): 10 Director Of Software Engineering/ALS Called : No Transferred To: Remains with Mother BABY B INFORMATION : N/A SIGNATURES Assignment: Carolyn Trejo MD Signature: with User ID: Michelle : with User ID: Michelle : I personally evaluated and examined the patient in conjunction with the MLP and agree with the assessment, treatment plan and disposition.
--- NOTE | 2016-07-03 20:24 | L&D General Admission ---
General Admit Datetime Report Generated by CPN: 07/03/2016 20:20 INFORMATION Patient Age: 29 (10/31/2015 13:25:QS system process) EDC: 06/29/2016 00:00 (06/20/2016 18:55:Inge Trejo RN) : 7 (06/20/2016 18:55:Katie Mai RN) Para: 1 (06/20/2016 18:55:Katie Mai RN) Term: 1 (06/20/2016 18:55:Jemima Roberts RN) : 0 (06/20/2016 18:55:Jemima Roberts RN) Spontaneous Abortions: 5 (06/20/2016 18:55:Jemima Roberts RN) Induced Abortions: 0 (06/20/2016 18:55:Jemima Roberts RN) Livin (06/20/2016 18:55:Jemima Roberts RN) Cesareans: 0 (06/20/2016 18:55:Jemima Roberts RN) VBACs: 0 (06/20/2016 18:55:Jemima Roberts RN) Ectopic: 2 (06/20/2016 18:55:Jemima Roberts RN) Multiple Births: 0 (06/20/2016 18:55:Jemima Roberts RN) Baby, Number in Womb: 1 (06/20/2016 18:55:Katie Mai RN) CARE Primary Public Health Policy Analyst: [facility] (06/20/2016 18:55:Katie Mai RN) Month of 1st Visit: sept (06/20/2016 18:55:ANNE-MARIE Aguero) Adequate Care: Yes (06/20/2016 18:55:Katie Mai RN) Prepregnancy Weight (lb): 130 (06/20/2016 18:55:ANNE-MARIE Aguero) Prepregnancy Weight (kg): 59.1 (06/20/2016 18:55:QS system process) Height (in): 62 (06/27/2016 11:04:QS system process) ALLERGIES Medication Allergy: No (06/20/2016 18:55:Katie Mai RN) Medication Allergies: No Known Allergies (04/07/2015) (10/31/2015 13:25:QS system process) Latex Allergy: No Latex Allergies (06/20/2016 18:55:Katie Mai RN) Food Allergies: N/A (06/20/2016 18:55:Katie Mai RN) Environmental Allergies: N/A (06/20/2016 18:55:Katie Mai RN) COMMUNICATION Primary Language: Swedish (06/20/2016 18:55:Katie Mai RN) Medical Tx Preferred Language: Swedish (06/20/2016 18:55:Katie Mai RN) Communication Barrier(s): None (06/20/2016 18:55:Katie Mai RN) DEMOGRAPHICS Address: [address] [place] [id number] (06/20/2016 18:57:QS system process) Zipcode: [address] (06/20/2016 18:57:QS system process) Home (06/20/2016 18:57:QS system process) SSN: [id number] (10/31/2015 13:25:QS system process) Next of Kin Name: LESTER LONDON (06/20/2016 18:57:QS system process) Next of Kin (06/20/2016 18:57:QS system process) Next of Kin Relationship: OR (06/20/2016 18:57:QS system process) Date of : 1985 (10/31/2015 13:25:QS system process) Marital Status: (10/31/2015 13:25:QS system process) Sex: Female (10/31/2015 13:25:QS system process) Race: (10/31/2015 13:25:QS system process) Ethnicity: Non- or (10/31/2015 13:25:QS system process) Samaritan: Cheondoism (10/31/2015 13:25:QS system process) FOB Involved: Yes (06/20/2016 18:55:Katie Mai RN) Father of Baby Name: Lester London (06/20/2016 18:55:Katie Mai RN) DRUG AND ALCOHOL USE Alcohol: No (06/20/2016 18:55:Katie Mai RN) Cigarettes: Former Smoker. [id number] (06/20/2016 18:55:Katie Mai RN) Marijuana: No (06/20/2016 18:55:Katie Mai RN) Cocaine: No (06/20/2016 18:55:Katie Mai RN) Other Illicit Drugs: No (06/20/2016 18:55:Katie Mai RN) VACCINE HISTORY Influenza Vaccine: Yes (06/20/2016 18:55:Katie Mai RN) Pneumococcal Vaccine: No (06/20/2016 18:55:Katie Mai RN) Tetanus Vaccine: No (06/20/2016 18:55:Katie Mai RN) Tdap Vaccine: No (06/20/2016 18:55:Katie Mai RN) Hepatitis B Vaccine: No (06/20/2016 18:55:Katie Mai RN) Senior Network Administrator: [facility] (06/20/2016 18:55:Katie Mai RN) Feeding Preference: Breast (06/20/2016 18:55:Katie Mai RN) Benefit of Breast Feed Discussed: Yes (06/20/2016 18:55:Katie Mai RN) Circumcision: Yes (06/20/2016 18:55:Katie Mai RN) Classes Attended: No (06/20/2016 18:55:Katie Mai RN) Tubal Ligation: No (06/20/2016 18:55:Katie Mai RN) Tubal Authorization Signed: N/A (06/20/2016 18:55:Katie Mai RN) Consent: N/A (06/20/2016 18:55:Katie Mai RN) Consent Signed: N/A (06/20/2016 18:55:Katie Mai RN) Plans for Labor and Delivery: None (06/20/2016 18:55:Katie Mai RN) Support Person: Lester London (06/20/2016 18:55:Katie Mai RN) Support Person Relationship: Significant Other (06/20/2016 18:55:Katie Mai RN) Cultural/Spritual Practice: No (06/20/2016 18:55:Katie Mai RN) Spir/Cult Dietary Needs: No (06/20/2016 18:55:Katie Mai RN) LIVING SITUATION/DISCHARGE PLAN Living Arrangements: House (06/20/2016 18:55:Katie Mai RN) Adequate Access to:: Electric; Heat; Refrigeration; Plumbing/Running water; Phone; Transportation (06/20/2016 18:55:Katie Mai RN) WIC Program: Yes (06/20/2016 18:55:Katie Mai RN) Discharge Anchor Operator Person: Lester London (06/20/2016 18:55:Katie Mai RN) Person to Help after Discharge: Lester London (06/20/2016 18:55:Katie Mai RN) Currently Using Commun Resources: No (06/20/2016 18:55:Katie Mai RN) Outside Agency/Stars Analytical Lead: No (06/20/2016 18:55:Katie Mai RN) Car Seat for Discharge: Yes (06/20/2016 18:55:Katie Mai RN) Adoption Requested: No (06/20/2016 18:55:Katie Mai RN) Pt Contact w/ Post : N/A (06/20/2016 18:55:Katie Mai RN) LABS Blood Type: O Positive (06/20/2016 18:55:Jemima Roberts RN) Antibody Screen: NEGATIVE (06/20/2016 18:55:Jemima Roberts RN) Hemoglobin: 13.0 (06/27/2016 07:03:QS system process) Hematocrit: 38.6 (06/27/2016 07:03:QS system process) MCV: 89 (06/27/2016 07:03:QS system process) Group Beta Strep: NEGATIVE (06/20/2016 18:55:Jemima Roberts RN) Gonorrhea: Negative (06/20/2016 18:55:Jemima Roberts RN) Chlamydia: Negative (06/20/2016 18:55:Jemima Roberts RN) RPR/VDRL: Nonreactive (06/20/2016 18:55:Jemima Roberts RN) Hepatitis B: Negative (06/20/2016 18:55:Jemima Roberts RN) Rubella: Immune (06/20/2016 18:55:Jemima Roberts RN) OB/PREVIOUS HISTORY Previous Procedures: Ultrasound (06/20/2016 18:55:Katie Mai RN) Current Procedures: Ultrasound (06/20/2016 18:55:Katie Mai RN) History of Previous : No (06/20/2016 18:55:Katie Mai RN) History of Gestational Diabetes: No (06/20/2016 18:55:Katie Mai RN) History of PIH: No (06/20/2016 18:55:Katie Mai RN) History of Incompetent Cervix: No (06/20/2016 18:55:Katie Mai RN) History of Placenta Previa/Abrup: No (06/20/2016 18:55:Katie Mai RN) History of Macrosomia: No (06/20/2016 18:55:Katie Mai RN) History of IUGR: No (06/20/2016 18:55:Katie Mai RN) History of Hemorrhage: No (06/20/2016 18:55:Katie Mai RN) History of Loss/Stillborn: No (06/20/2016 18:55:Katie Mai RN) History of : No (06/20/2016 18:55:Katie Mai RN) History of D (Rh) Sensitization: No (06/20/2016 18:55:Katie Mai RN) History Recurrent Loss/Stillborn: No (06/20/2016 18:55:Katie Mai RN) History Depression/PP Depression: Yes (06/20/2016 18:55:Jemima Roberts RN) History of Uterine Anomaly/ANNELISE: No (06/20/2016 18:55:Katie Mai RN) History of Infertility: No (06/20/2016 18:55:Katie Mai RN) History of ART Treatment: No (06/20/2016 18:55:Katie Mai RN) History of ANNELISE: No (06/20/2016 18:55:Katie Mai RN) Comments Obstetrical History: G1 - 2006 - ectopic G2 - 2007 - SAB G3 - 2008 - ectopic G4 - 2007 - SAB G5 - 2011 - , Boy G6 - 2015 - SAB G7 - Current (06/20/2016 18:55:Katie Mai RN) MEDICAL HISTORY Med Hx Diabetes: No (06/20/2016 18:55:Katie Mai RN) Med Hx Hypertension: No (06/20/2016 18:55:Katie Mai RN) Med Hx Heart Disease: No (06/20/2016 18:55:Katie Mai RN) Med Hx Autoimmune Disorder: No (06/20/2016 18:55:Katie Mai RN) Med Hx Kidney Disease/UTI: No (06/20/2016 18:55:Katie Mai RN) Med Hx Neurologic/Epilepsy: No (06/20/2016 18:55:Katie Mai RN) Med Hx Psychiatric Disorders: Yes (06/20/2016 18:55:Jemima Roberts RN) Med Hx Hepatitis/Liver Disease: No (06/20/2016 18:55:Katie Mai RN) Med Hx Varicosities/Phlebitis: No (06/20/2016 18:55:Katie Mai RN) Med Hx Thyroid Dysfunction: No (06/20/2016 18:55:Katie Mai RN) Med Hx Trauma/Violence: No (06/20/2016 18:55:Katie Mai RN) Med Hx Blood Transfusion: No (06/20/2016 18:55:Katie Mai RN) Med Hx Pulmonary (Asthma,TB): Yes (06/20/2016 18:55:Katie Mai RN) Med Hx Breast: No (06/20/2016 18:55:Katie Mai RN) Med Hx APPLIANCE TECHNICIAN Surgery: No (06/20/2016 18:55:Katie Mai RN) Med Hx Hospitalization/Surgery: Yes (06/20/2016 18:55:Jemima Roberts RN) Med Hx Anesthetic Complications: No (06/20/2016 18:55:Katie Mai RN) Med Hx Abnormal Pap Smear: Yes (06/20/2016 18:55:Katie Mai RN) Other Medical Diseases: No (06/20/2016 18:55:Katie Mai RN) Med Hx Significant Family Hx: No (06/20/2016 18:55:Katie Mai RN) Details of Med/Surg Hx: DEPRESSION _ ANXIETY Asthma, CHILDBIRTH abnormal pap at 13 (06/20/2016 18:55:Jemima Roberts RN) INFECTIOUS HISTORY Inf Hx Gonorrhea: No (06/20/2016 18:55:Katie Mai RN) Inf Hx Chlamydia: No (06/20/2016 18:55:Katie Mai RN) Inf Hx Syphilis: No (06/20/2016 18:55:Katie Mai RN) Inf Hx HIV/AIDS: No (06/20/2016 18:55:Katie Mai RN) Inf Hx Human Papilloma Virus: No (06/20/2016 18:55:Katie Mai RN) Inf Hx Pt/Partner Genital Herpes: No (06/20/2016 18:55:Katie Mai RN) Inf Hx Tuberculosis/Exposure: No (06/20/2016 18:55:Katie Mai RN) Inf Hx Hepatitis B,C: No (06/20/2016 18:55:Katie Mai RN) Inf Hx Rash or Viral Illness: No (06/20/2016 18:55:Katie Mai RN) GENETIC HISTORY Gen Hx Age >=35 at YOHANA: No (06/20/2016 18:55:Katie Mai RN) Gen Hx Thalassemia: No (06/20/2016 18:55:Katie Mai RN) Gen Hx Congenital Heart Defect: No (06/20/2016 18:55:Katie Mai RN) Gen Hx Neural Tube Defect: No (06/20/2016 18:55:Katie Mai RN) Gen Hx Down's Syndrome: No (06/20/2016 18:55:Katie Mai RN) Gen Hx Tim-Sachs: No (06/20/2016 18:55:Katie Mai RN) Gen Hx Jase: No (06/20/2016 18:55:Katie Mai RN) Gen Hx Familial Dysautonomia: No (06/20/2016 18:55:Katie Mai RN) Gen Hx Sickle Cell Disease/Trait: No (06/20/2016 18:55:Katie Mai RN) Gen Hx Hemophilia/Blood Disorder: No (06/20/2016 18:55:Katie Mai RN) Gen Hx Muscular Dystrophy: No (06/20/2016 18:55:Katie Mai RN) Gen Hx Cystic Fibrosis: No (06/20/2016 18:55:Katie Mai RN) Gen Hx Huntingtons Chorea: No (06/20/2016 18:55:Katie Mai RN) Gen Hx Mental Retardation/Autism: No (06/20/2016 18:55:Katie Mai RN) Gen Hx Tested for Fragile X: No (06/20/2016 18:55:Katie Mai RN) Gen Hx Other Inher/Chromosomal: No (06/20/2016 18:55:Katie Mai RN) Gen Hx Maternal Metabolic DO: No (06/20/2016 18:55:Katie Mai RN) Gen Hx Pt Father or FOB Defect: No (06/20/2016 18:55:Katie Mai RN) Gen Hx Other Genetic History: No (06/20/2016 18:55:Katie Mai RN) Gen Hx Drugs/Meds since LMP: Yes (06/20/2016 18:55:Katie Mai RN) Gen Hx Medications: PNV, Folic Acid, Zyrtec and Tums (06/20/2016 18:55:Katie Mai RN)
--- NOTE | 2016-07-04 06:00 | L&D General Admission ---
General Admit Datetime Report Generated by CPN: 07/04/2016 06:00 INFORMATION Patient Age: 29 (10/31/2015 13:25:QS system process) EDC: 06/29/2016 00:00 (06/20/2016 18:55:Inge Trejo RN) : 7 (06/20/2016 18:55:Katie Mai RN) Para: 1 (06/20/2016 18:55:Katie Mai RN) Term: 1 (06/20/2016 18:55:eJmima Roberts RN) : 0 (06/20/2016 18:55:Jemima Roberts RN) Spontaneous Abortions: 5 (06/20/2016 18:55:Jemima Roberts RN) Induced Abortions: 0 (06/20/2016 18:55:Jemima Roberts RN) Livin (06/20/2016 18:55:Jemima Roberts RN) Cesareans: 0 (06/20/2016 18:55:Jemima Roberts RN) VBACs: 0 (06/20/2016 18:55:Jemima Roberts RN) Ectopic: 2 (06/20/2016 18:55:Jemima Roberts RN) Multiple Births: 0 (06/20/2016 18:55:Jemima Roberts RN) Baby, Number in Womb: 1 (06/20/2016 18:55:Katie Mai RN) CARE Primary Children'S Ministry Director: [facility] (06/20/2016 18:55:Katie Mai RN) Month of 1st Visit: sept (06/20/2016 18:55:ANNE-MARIE Aguero) Adequate Care: Yes (06/20/2016 18:55:Katie Mai RN) Prepregnancy Weight (lb): 130 (06/20/2016 18:55:ANNE-MARIE Aguero) Prepregnancy Weight (kg): 59.1 (06/20/2016 18:55:QS system process) Height (in): 62 (06/27/2016 11:04:QS system process) ALLERGIES Medication Allergy: No (06/20/2016 18:55:Katie Mai RN) Medication Allergies: No Known Allergies (04/07/2015) (10/31/2015 13:25:QS system process) Latex Allergy: No Latex Allergies (06/20/2016 18:55:Katie Mai RN) Food Allergies: N/A (06/20/2016 18:55:Katie Mai RN) Environmental Allergies: N/A (06/20/2016 18:55:Katie Mai RN) COMMUNICATION Primary Language: Frisian (06/20/2016 18:55:Katie Mai RN) Medical Tx Preferred Language: Frisian (06/20/2016 18:55:Katie Mai RN) Communication Barrier(s): None (06/20/2016 18:55:Katie Mai RN) DEMOGRAPHICS Address: [address] [place] [id number] (06/20/2016 18:57:QS system process) Zipcode: [address] (06/20/2016 18:57:QS system process) Home (06/20/2016 18:57:QS system process) SSN: [id number] (10/31/2015 13:25:QS system process) Next of Kin Name: LESTER LONDON (06/20/2016 18:57:QS system process) Next of Kin (06/20/2016 18:57:QS system process) Next of Kin Relationship: OR (06/20/2016 18:57:QS system process) Date of : 1985 (10/31/2015 13:25:QS system process) Marital Status: (10/31/2015 13:25:QS system process) Sex: Female (10/31/2015 13:25:QS system process) Race: (10/31/2015 13:25:QS system process) Ethnicity: Non- or (10/31/2015 13:25:QS system process) Yarsani: Religious (10/31/2015 13:25:QS system process) FOB Involved: Yes (06/20/2016 18:55:Katie Mai RN) Father of Baby Name: Lester London (06/20/2016 18:55:Katie Mai RN) DRUG AND ALCOHOL USE Alcohol: No (06/20/2016 18:55:Katie Mai RN) Cigarettes: Former Smoker. [id number] (06/20/2016 18:55:Katie Mai RN) Marijuana: No (06/20/2016 18:55:Katie Mai RN) Cocaine: No (06/20/2016 18:55:Katie Mai RN) Other Illicit Drugs: No (06/20/2016 18:55:Katie Mai RN) VACCINE HISTORY Influenza Vaccine: Yes (06/20/2016 18:55:Katie Mai RN) Pneumococcal Vaccine: No (06/20/2016 18:55:Katie Mai RN) Tetanus Vaccine: No (06/20/2016 18:55:Katie Mai RN) Tdap Vaccine: No (06/20/2016 18:55:Katie Mai RN) Hepatitis B Vaccine: No (06/20/2016 18:55:Katie Mai RN) Director Of Digital Platforms: [facility] (06/20/2016 18:55:Katie Mai RN) Feeding Preference: Breast (06/20/2016 18:55:Katie Mai RN) Benefit of Breast Feed Discussed: Yes (06/20/2016 18:55:Katie Mai RN) Circumcision: Yes (06/20/2016 18:55:Katie Mai RN) Classes Attended: No (06/20/2016 18:55:Katie Mai RN) Tubal Ligation: No (06/20/2016 18:55:Katie Mai RN) Tubal Authorization Signed: N/A (06/20/2016 18:55:Katie Mai RN) Consent: N/A (06/20/2016 18:55:Katie Mai RN) Consent Signed: N/A (06/20/2016 18:55:Katie Mai RN) Plans for Labor and Delivery: None (06/20/2016 18:55:Katie Mai RN) Support Person: Lester London (06/20/2016 18:55:Katie Mai RN) Support Person Relationship: Significant Other (06/20/2016 18:55:Katie Mai RN) Cultural/Spritual Practice: No (06/20/2016 18:55:Katie Mai RN) Spir/Cult Dietary Needs: No (06/20/2016 18:55:Katie Mai RN) LIVING SITUATION/DISCHARGE PLAN Living Arrangements: House (06/20/2016 18:55:Katie Mai RN) Adequate Access to:: Electric; Heat; Refrigeration; Plumbing/Running water; Phone; Transportation (06/20/2016 18:55:Katie Mai RN) WIC Program: Yes (06/20/2016 18:55:Katie Mai RN) Discharge Uniform Designer Person: Lester London (06/20/2016 18:55:Katie Mai RN) Person to Help after Discharge: Lester London (06/20/2016 18:55:Katie Mai RN) Currently Using Commun Resources: No (06/20/2016 18:55:Katie Mai RN) Outside Agency/General Internal Medicine Doctor: No (06/20/2016 18:55:Katie Mai RN) Car Seat for Discharge: Yes (06/20/2016 18:55:Katie Mai RN) Adoption Requested: No (06/20/2016 18:55:Katie Mai RN) Pt Contact w/ Post : N/A (06/20/2016 18:55:Katie Mai RN) LABS Blood Type: O Positive (06/20/2016 18:55:Jemima Roberts RN) Antibody Screen: NEGATIVE (06/20/2016 18:55:Jemima Roberts RN) Hemoglobin: 13.0 (06/27/2016 07:03:QS system process) Hematocrit: 38.6 (06/27/2016 07:03:QS system process) MCV: 89 (06/27/2016 07:03:QS system process) Group Beta Strep: NEGATIVE (06/20/2016 18:55:Jemima Roberts RN) Gonorrhea: Negative (06/20/2016 18:55:Jemima Roberts RN) Chlamydia: Negative (06/20/2016 18:55:Jemima Roberts RN) RPR/VDRL: Nonreactive (06/20/2016 18:55:Jemima Roberts RN) Hepatitis B: Negative (06/20/2016 18:55:Jemima Roberts RN) Rubella: Immune (06/20/2016 18:55:Jemima Roberts RN) OB/PREVIOUS HISTORY Previous Procedures: Ultrasound (06/20/2016 18:55:Katie Mai RN) Current Procedures: Ultrasound (06/20/2016 18:55:Katie Mai RN) History of Previous : No (06/20/2016 18:55:Katie Mai RN) History of Gestational Diabetes: No (06/20/2016 18:55:Katie Mai RN) History of PIH: No (06/20/2016 18:55:Katie Mai RN) History of Incompetent Cervix: No (06/20/2016 18:55:Katie Mai RN) History of Placenta Previa/Abrup: No (06/20/2016 18:55:Katie Mai RN) History of Macrosomia: No (06/20/2016 18:55:Katie Mai RN) History of IUGR: No (06/20/2016 18:55:Katie Mai RN) History of Hemorrhage: No (06/20/2016 18:55:Katie Mai RN) History of Loss/Stillborn: No (06/20/2016 18:55:Katie Mai RN) History of : No (06/20/2016 18:55:Katie Mai RN) History of D (Rh) Sensitization: No (06/20/2016 18:55:Katie Mai RN) History Recurrent Loss/Stillborn: No (06/20/2016 18:55:Katie Mai RN) History Depression/PP Depression: Yes (06/20/2016 18:55:Jemima Roberts RN) History of Uterine Anomaly/ANNELISE: No (06/20/2016 18:55:Katie Mai RN) History of Infertility: No (06/20/2016 18:55:Katie Mai RN) History of ART Treatment: No (06/20/2016 18:55:Katie Mai RN) History of ANNELISE: No (06/20/2016 18:55:Katie Mai RN) Comments Obstetrical History: G1 - 2006 - ectopic G2 - 2007 - SAB G3 - 2008 - ectopic G4 - 2007 - SAB G5 - 2011 - , Boy G6 - 2015 - SAB G7 - Current (06/20/2016 18:55:Katie Mai RN) MEDICAL HISTORY Med Hx Diabetes: No (06/20/2016 18:55:Katie Mai RN) Med Hx Hypertension: No (06/20/2016 18:55:Katie Mai RN) Med Hx Heart Disease: No (06/20/2016 18:55:Katie Mai RN) Med Hx Autoimmune Disorder: No (06/20/2016 18:55:Katie Mai RN) Med Hx Kidney Disease/UTI: No (06/20/2016 18:55:Katie Mai RN) Med Hx Neurologic/Epilepsy: No (06/20/2016 18:55:Katie Mai RN) Med Hx Psychiatric Disorders: Yes (06/20/2016 18:55:Jemima Roberts RN) Med Hx Hepatitis/Liver Disease: No (06/20/2016 18:55:Katie Mai RN) Med Hx Varicosities/Phlebitis: No (06/20/2016 18:55:Katie Mai RN) Med Hx Thyroid Dysfunction: No (06/20/2016 18:55:Katie Mai RN) Med Hx Trauma/Violence: No (06/20/2016 18:55:Katie Mai RN) Med Hx Blood Transfusion: No (06/20/2016 18:55:Katie Mai RN) Med Hx Pulmonary (Asthma,TB): Yes (06/20/2016 18:55:Katie Mai RN) Med Hx Breast: No (06/20/2016 18:55:Katie Mai RN) Med Hx MEMORY CARE PROGRAM DIRECTOR Surgery: No (06/20/2016 18:55:Katie Mai RN) Med Hx Hospitalization/Surgery: Yes (06/20/2016 18:55:Jemima Roberts RN) Med Hx Anesthetic Complications: No (06/20/2016 18:55:Katie Mai RN) Med Hx Abnormal Pap Smear: Yes (06/20/2016 18:55:Katie Mai RN) Other Medical Diseases: No (06/20/2016 18:55:Katie Mai RN) Med Hx Significant Family Hx: No (06/20/2016 18:55:Katie Mai RN) Details of Med/Surg Hx: DEPRESSION _ ANXIETY Asthma, CHILDBIRTH abnormal pap at 13 (06/20/2016 18:55:Jemima Roberts RN) INFECTIOUS HISTORY Inf Hx Gonorrhea: No (06/20/2016 18:55:Katie Mai RN) Inf Hx Chlamydia: No (06/20/2016 18:55:Katie Mai RN) Inf Hx Syphilis: No (06/20/2016 18:55:Katie Mai RN) Inf Hx HIV/AIDS: No (06/20/2016 18:55:Katie Mai RN) Inf Hx Human Papilloma Virus: No (06/20/2016 18:55:Katie Mai RN) Inf Hx Pt/Partner Genital Herpes: No (06/20/2016 18:55:Katie Mai RN) Inf Hx Tuberculosis/Exposure: No (06/20/2016 18:55:Katie Mai RN) Inf Hx Hepatitis B,C: No (06/20/2016 18:55:Katie Mai RN) Inf Hx Rash or Viral Illness: No (06/20/2016 18:55:Katie Mai RN) GENETIC HISTORY Gen Hx Age >=35 at YOHANA: No (06/20/2016 18:55:Katie Mai RN) Gen Hx Thalassemia: No (06/20/2016 18:55:Katie Mai RN) Gen Hx Congenital Heart Defect: No (06/20/2016 18:55:Katie Mai RN) Gen Hx Neural Tube Defect: No (06/20/2016 18:55:Katie Mai RN) Gen Hx Down's Syndrome: No (06/20/2016 18:55:Katie Mai RN) Gen Hx Tim-Sachs: No (06/20/2016 18:55:Katie Mai RN) Gen Hx Jase: No (06/20/2016 18:55:Katie Mai RN) Gen Hx Familial Dysautonomia: No (06/20/2016 18:55:Katie Mai RN) Gen Hx Sickle Cell Disease/Trait: No (06/20/2016 18:55:Katie Mai RN) Gen Hx Hemophilia/Blood Disorder: No (06/20/2016 18:55:Katie Mai RN) Gen Hx Muscular Dystrophy: No (06/20/2016 18:55:Katie Mai RN) Gen Hx Cystic Fibrosis: No (06/20/2016 18:55:Katie Mai RN) Gen Hx Huntingtons Chorea: No (06/20/2016 18:55:Katie Mai RN) Gen Hx Mental Retardation/Autism: No (06/20/2016 18:55:Katie Mai RN) Gen Hx Tested for Fragile X: No (06/20/2016 18:55:Katie Mai RN) Gen Hx Other Inher/Chromosomal: No (06/20/2016 18:55:Katie Mai RN) Gen Hx Maternal Metabolic DO: No (06/20/2016 18:55:Katie Mai RN) Gen Hx Pt Father or FOB Defect: No (06/20/2016 18:55:Katie Mai RN) Gen Hx Other Genetic History: No (06/20/2016 18:55:Katie Mai RN) Gen Hx Drugs/Meds since LMP: Yes (06/20/2016 18:55:Katie Mai RN) Gen Hx Medications: PNV, Folic Acid, Zyrtec and Tums (06/20/2016 18:55:Katie Mai RN)
== END 2016-06-27 18:45 | disposition home or self-care (01) | DRG 775 ==
LOC: LC 11:42 → LR 13:35 → 2S 17:35
PROVIDERS: ADMIT Obstetrics & Gynecology; ATTEND Obstetrics & Gynecology
PROC: 10E0XZZ Delivery of Products of Conception, External Approach (ICD-10-PCS; principal; 2016-06-25)
PROC: 10907ZC Drainage of Amniotic Fluid, Therapeutic from Products of Conception, Via Natural or Artificial Opening (ICD-10-PCS; 2016-06-25)
PROC: 4A1HXCZ Monitoring of Products of Conception, Cardiac Rate, External Approach (ICD-10-PCS; 2016-06-25)
DX: O69.3XX0 Labor and delivery complicated by short cord, not applicable or unspecified (principal); O99.513 Diseases of the respiratory system complicating pregnancy, third trimester; J45.909 Unspecified asthma, uncomplicated; O99.344 Other mental disorders complicating childbirth; F32.9 Major depressive disorder, single episode, unspecified; F41.9 Anxiety disorder, unspecified; Z87.891 Personal history of nicotine dependence; Z3A.39 39 weeks gestation of pregnancy; Z37.0 Single live birth
CPT/HCPCS: 36415; 80307; 81005; 85025; 85027; 86592; 86850; 86900; 86901; 88307; 90715; J2590; J3490

== ENCOUNTER 2016-09-02 00:23 | Emergency (ER) | payer OTHER, MEDICAID ==
[2016-09-02] MEDS ORDERED: DIPHENHYDRAMINE HCL 50 MG/ML VIAL IM ONE (01:28)
[2016-09-02] MEDS ORDERED: PREDNISONE 20 MG TABLET PO ONE (01:29)
[2016-09-02] MEDS ORDERED: FAMOTIDINE 20 MG TABLET PO ONE (01:31)
--- NOTE | 2016-09-02 01:43 | ER Document Report ---
ED General - General Chief Complaint: Allergic Reaction Stated Complaint: POSSIBLE ALLERGIC REACTION Time Seen by Provider: 09/02/16 01:24 Notes: Patient is a 30-year-old female who presents with complaint of allergic reaction. No fevers. No vomiting. No recent infections. No recent medication use. Patient says she did eat a pecan cookie and then 3 hours later developed itching rash. Some swelling on the face. No swelling of throat or tongue. No difficulty breathing or swallowing. His Zyrtec at home before coming in. TRAVEL OUTSIDE OF THE [place] IN LAST 30 DAYS: No - Related Data Allergies/Adverse Reactions: No Known Allergies Allergy (Verified 04/07/15 18:52) Past Medical History - Social History Smoking Status: Never Smoker Frequency of alcohol use: None Drug Abuse: None Family History: Reviewed & Not Pertinent Patient has suicidal ideation: No Patient has homicidal ideation: No Pulmonary Medical History: Reports: Hx Asthma Renal/ Medical History: Reports: Hx Ovarian Cysts. Denies: Hx Peritoneal Dialysis Psychiatric Medical History: Reports: Hx Anxiety, Hx Depression Past Surgical History: Reports: Hx Gynecologic Surgery - right fallopian tube removed and ectopic X2 - Immunizations Hx Diphtheria, Pertussis, Tetanus Vaccination: Yes - left deltoid Hx Pneumococcal Vaccination: 12/11/11 Review of Systems - Review of Systems Notes: My Normal Review Basic REVIEW OF SYSTEMS: CONSTITUTIONAL : Denies fever, chills, or sweats. Denies recent illness. EENT: Denies eye, ear, throat, or mouth pain or symptoms. Denies nasal or sinus congestion. CARDIOVASCULAR: Denies chest pain. RESPIRATORY: Denies cough, cold, or chest congestion. Denies shortness of breath, difficulty breathing, or wheezing. GASTROINTESTINAL: Denies abdominal pain. Denies nausea, vomiting, or diarrhea. Denies constipation. Last BM: MUSCULOSKELETAL: Denies neck or back pain or joint pain or swelling. SKIN: Patient has hives-like rash over her lower extremities as well as some on her upper torso and her face. NEUROLOGICAL: Denies altered mental status or loss of consciousness. Denies headache. Denies weakness or paralysis or loss of use of either side. Denies problems with gait or speech. Denies sensory or motor loss. ALL OTHER SYSTEMS REVIEWED AND NEGATIVE. Physical Exam - Vital signs Vitals: Temp Pulse Resp BP Pulse Ox 98.2 F 109 H 16 113/61 97 09/02/16 00:28 09/02/16 00:28 09/02/16 00:28 09/02/16 00:28 09/02/16 00:28 - Notes Notes: General Appearance: Well nourished, alert, cooperative, no acute distress, no obvious discomfort. Vitals: reviewed, See vital signs table. Head: Slight swelling around the eyes and face. Eyes: PERRL, EOMI, Conjuctiva clear Mouth: No tongue swelling. No lip swelling Throat: No tonsillar inflammation, No airway obstruction, No lymphadenopathy Neck: Supple, no neck tenderness, No thyromegaly Lungs: No wheezing, No rales, No rhonci, No accessory muscle use, good air exchange bilaterally. Heart: Normal rate, Regular rythm, No murmur, no rub Abdomen: Normal BS, soft, No rigidity, No abdominal tenderness, No guarding, no rebound, no abdominal masses, no organomegaly Extremities: strength 5/5 in all extremities, good pulses in all extremities, no swelling or tenderness in the extremities, no edema. Skin: Patient has hives-like rash over her lower extremities as well as some on her upper torso and her face. Neuro: speech clear, oriented x 3, normal affect, responds appropriately to questions. Course - Vital Signs Vital signs: Temp Pulse Resp BP Pulse Ox 98.2 F 109 H 16 113/61 97 09/02/16 00:28 09/02/16 00:28 09/02/16 00:28 09/02/16 00:28 09/02/16 00:28 - Transfer of Care Notes: 09/02/16 03:37 On exam all facial swelling is gone. Her rash is gone. She no longer has itching. She is well-appearing. She will be discharged home with tapering dose prednisone as well as a prescription for adrenal KwikPen. She is encouraged to return to the ER immediately if she has severe itching not responding to Benadryl, any facial swelling, any difficulty breathing, difficulty swallowing, or she feels unwell. Patient agrees with plan will be discharged home. The exact cause of allergic reaction is not clear. I told her it could be related to the cookie and therefore she has to be careful if she eats the similar kind of cookie in the future. Discharge - Discharge Clinical Impression: Allergic reaction Qualifiers: Encounter type: initial encounter Qualified Code(s): T78.40XA - Allergy, unspecified, initial encounter Condition: Good Disposition: HOME, SELF-CARE Additional Instructions: ACUTE ALLERGIC REACTION: Your symptoms are due to an allergic reaction. Allergy can cause hives, swelling of the hands, feet, and face, hoarseness, and difficulty swallowing or breathing. It may be due to exposure to medication, animal dander, foods, infection, or insect bites. Medication is a common cause, even when prior use of this same medication caused no problems. Acute treatment may include adrenalin and antihistamines. Usually, the specific allergic agent can't be identified unless repeated episodes occur. Home treatment includes the following: (1) Stop any suspicious medications. This will be discussed with you. (2) Oral antihistamines for the next four to five days. Example, diphenhydramine (Benadryl) every four hours. (3) You may also use cimetidine (Tagamet), ranitidine (Zantac), or famotidine ( Pepcid) every four hours if diphenhydramine is not controlling itching and hives. (4) Avoid aspirin until the hives completely disappear. (5) Avoid hot baths or showers until the hives are completely gone. Call the doctor if faintness, difficulty swallowing, tightness in the chest , or wheezing occurs. EPINEPHRINE: An injection of epinephrine (also called adrenalin) is used to treat allergic reactions, asthma, and some other medical conditions. It is a stimulant medication that consticts blood vessels, relaxes smooth muscles such as in the bronchioles of the lung, elevates blood pressure, and increases heart rate. It can temporarily make you feel very nervous and shakey, but it's affects last only a short time, about 15 to 30 minutes at most. STEROID MEDICATION: You have been given a medicine of the cortisone/steroid class. This medication is used to control inflammation or allergy. It is usually only given for a short period of time, until the acute process subsides. There are usually no side effects from short-term use of cortisone-like medications. Some persons feel an increased sense of well-being and are not sleepy at bedtime. Long-term use of cortisone medications is best avoided, unless required for a severe condition. If your condition does not remit, or relapses after the course of corticosteroid medication, you should consult your physician. ANTIHISTAMINES: An antihistamine has been given and/or prescribed to control your symptoms. Antihistamines are used for many reasons, including itching, watering eyes, runny nose, allergic swelling, hives, and insect stings. Antihistamines may cause drowsiness, especially with the first dose. Do not operate machinery or drive while under the effects of the medication. Other common side effects include dry mouth and eyes. In older persons, antihistamines can occasionally cause urinary retention, constipation, and trouble focusing the eyes. Do not combine the medication with alcohol, or with any other medication without talking to your doctor. FOLLOW-UP CARE: If you have been referred to a physician for follow-up care, call the physician s office for an appointment as you were instructed or within the next two days. If you experience worsening or a significant change in your symptoms, notify the physician immediately or return to the Emergency Department at any time for re-evaluation. Please use the Adrenaclick pen if you have have tongue swelling, throat swelling , or difficulty breathing. Please return to the ER immediately if you have worsneing reaction , difficulty breathing, lip swelling, or throat swelling,or have to use the Adrenaclick pen Prescriptions: Epinephrine [Adrenaclick] 0.3 mg IM ONCE PRN #1 kit PRN Reason: severe allergic reaction Prednisone 10 mg PO ASDIR #42 tablet
[2016-09-02 04:10] VITALS: BP 108/66
== END 2016-09-02 04:05 | disposition home or self-care (01) ==
LOC: ER 00:23
DX: L50.0 Allergic urticaria (principal); J45.909 Unspecified asthma, uncomplicated
CPT/HCPCS: 99283; 96372; J1200; J7512